=== PATIENT | male | born 1940 | race Caucasian/White ===

== ENCOUNTER 2018-07-03 19:39 | Inpatient (IN) | payer MEDICARE ==
[~2018-07-03] VITALS: Ht 177.8 cm; Wt 326.2 kg
--- NOTE | ~2018-07-03 | OP ---
PATIENT NAME: MARIE JIMENEZ JR MEDICAL RECORD: [id number] :40 LOCATION:.[facility] D.2307 ADMISSION DATE:07/04/18 SURGEON: LEFTY ALICIA MD DATE OF OPERATION: 07/06/2018 PREOPERATIVE DIAGNOSES: Pneumoperitoneum with perforated diverticulitis. POSTOPERATIVE DIAGNOSES: Pneumoperitoneum with perforated diverticulitis with widespread contamination throughout the abdomen. PROCEDURES: 1. Exploratory laparotomy. 2. Subtotal colectomy with ileorectal anastomosis. 3. Placement of wound VAC. 4. Insertion of right internal jugular double lumen central venous catheter. SURGEON: Lefty Alicia MD ACCOUNTANT TAX: None. BLOOD LOSS: 250 cc. ANESTHESIA: General. COMPLICATIONS: None. The risks, possible complications and alternatives to procedure were explained to the patient. He elects to proceed. I told the patient that I may be faced with a dilemma of whether to perform a Say procedure with a colostomy or to perform an anastomosis between the colon and rectum and do a diverting ileostomy versus an ileorectal anastomosis, which may leave him with chronic diarrhea. He elected for chronic diarrhea rather than have a stoma. The anesthesia staff requested that I gain additional IV access on this patient by placing a central line. OPERATIVE COURSE: The patient was conveyed to the operating room electively on 07/06/2018. General anesthesia was induced by the anesthesia staff. The patient was positioned in Trendelenburg position. Right internal jugular vein was percutaneously accessed in an antegrade fashion. Guidewire was passed easily. A small skin anna marie was accomplished. A vessel dilator was used to dilate a subcutaneous tract. A 16-cm double lumen central venous catheter was inserted to the hub. It was sutured in place times 3. All lumens flushed easily and aspirated dark, nonpulsatile blood. I told the anesthesia staff they could begin using the central venous line immediately. The abdomen was sterilely prepped and draped. A generous midline incision was accomplished. Retractors were placed. There were some adhesions and the sharp adhesiolysis took only about 5 minutes. There was contamination with succuss present within the abdomen. Cultures were obtained. OPERATIVE REPORT [id number] MARIE JIMENEZ JR I began my dissection, which was mainly blunt dissection and noted an area in the sigmoid colon that was very indurated with a lot of exudate and this appeared to be where the perforation was present. However, I could not definitely identify the perforation. I chose to excise this portion of the colon in the hopes that I might be able to perform an anastomosis between the sigmoid colon and the rectum. A window was created in the mesentery of the colon as it splays out from the rectum. I stapled across the large bowel here with a ELÍAS-75 stapler. I then chose the proximal extent of my resection to be the junction of the descending colon and sigmoid colon. I stapled across these large bowel here with a ELÍAS-75 stapler. The interpose mesentery was taken down utilizing the Super Jaw EnSeal device. Once that was done, I irrigated some more. There was no bleeding. I identified both ureters. They were retracted for protection. I elected to perform a subtotal colectomy as a colorectal anastomosis was going to be hazardous and prone to rupture. I incised along the left white line of Toldt. I took down the splenic flexure of the colon sharply. I then began my division of the descending colon mesentery with the Super Jaw EnSeal device. I then rounded the splenic flexure. I took down the greater omentum in its entirety with the EnSeal device. I then took down the mesentery of the transverse colon with the Super Jaw EnSeal device. I incised along the right white line of Toldt. I swept down the duodenum. I identified the inferior vena cava. I took down the mesentery of the right colon with the Super Jaw EnSeal device. I then divided the ileum at the ligament of Treitz with a ELÍAS-75 stapler. The subtotal colectomy specimen was then sent to pathology. I then mobilized the ileum. It was placed in apposition to the rectal stump front to back. It was kept in place with multiple interrupted 3-0 Vicryl sutures. A small enterotomy and small rectotomy were performed and I advanced anvils of the ELÍAS-75 stapler and then fired. I then began to "milk" some of the fluid within the dilated small bowel toward the anastomosis. There was no leakage from the anastomosis which appeared to be air and water tight. I irrigated all quadrants with normal saline. I ensured the small bowel was not twisted on its mesentery. The midline fascia was closed with a running looped #1 PDS from cephalad and caudad directions. I then placed a wound VAC black strip in the open subcutaneous wound. The cellophane-type dressings were applied over the black wound VAC sponge. The cellophane-type dressings were incised. A Lap-Disc device was applied and attached to suction which held a good "raison" indicating good suction with a seal that was not leaking. The patient was then extubated and conveyed to the post-anesthesia care unit where he was in stable condition. I contacted his by phone. TRANSINT:[id number] Voice Confirmation ID: [id number] DOCUMENT ID: [id number] OPERATIVE REPORT [id number] MARIE JIMENEZ JR, LEFTY DANGELO at 1240 CC: [id number] DICTATION DATE: 07/06/181819 SOLOIST DANCER: 07/07/18 [address] [facility] [address] [place] [address]
--- NOTE | ~2018-07-03 | PN ---
PATIENT:MARIE JIMENEZ JR MEDICAL RECORD: [id number] LOCATION:D.ICU D.230 ADMISSION DATE: 07/04/18 PROGRESS NOTE DATE OF SERVICE: 07/20/2018 SUBJECTIVE: This 77-year-old man was admitted through the Emergency Room for acute perforation of diverticulitis. The patient was taken to surgery and had partial colectomy as well as ileorectal colostomy. The patient did well, was brought to the ICU on a mask oxygen. The patient began to have increasing shortness of breath as well as tachypnea. The patient was intubated. He also had a large right pleural effusion, which was removed with thoracentesis. The patient has improved requiring less FiO2. He has been awake, but nonverbal, no response to verbal stimuli. There is no fever or chills. Had an uneventful night. PHYSICAL EXAMINATION: GENERAL: Reveals only a male who is in no acute distress. VITAL SIGNS: Temperature 100.9, heart rate of 81, respiratory rate of 18, blood pressure 102/64. SHEENT: Unremarkable. NECK: Supple. There is no adenopathy. Trachea is midline. There is no thyromegaly. CHEST: Showed mild basilar crackles. CARDIAC: Shows no jugular venous distention. There is no murmur or gallop. ABDOMEN: Benign, without tenderness. EXTREMITIES: Shows no clubbing, cyanosis, or edema. LABORATORY DATA: Lab exam showed white count is 19.3, hemoglobin 9.1, platelet count 558,000. Arterial blood gas: PH 7.42, pCO2 of 34, and pO2 of 105 on 40% FiO2. Chest x-ray showed increasing bilateral pleural effusions. ASSESSMENT: 1. Acute hypoxemic respiratory failure. 2. Bilateral pleural effusions. 3. Pneumonia, on antibiotics. 4. Ruptured diverticulitis. 5. Peritonitis. 6. Bilateral pleural effusion, rule out cardiac dysfunction. PLAN: 1. Lasix. 2. Wean, if possible extubate as tolerated. 3. DVT prophylaxis. TRANSINT:[id number] Voice Confirmation ID: [id number] DOCUMENT ID: [id number] PROGRESS NOTE [id number] BARBARADALTON KRAMER JR at 0942 CC: [id number] DICTATION DATE: 07/20/18913 DESIGNER ARCHITECT: 07/20/[address] [facility] [address] [place] [id number]
--- NOTE | ~2018-07-03 | PN ---
PATIENT:MARIE JIMENEZ JR MEDICAL RECORD: [id number] LOCATION:D.[facility] D.230 ADMISSION DATE: 07/04/18 PROGRESS NOTE DATE OF SERVICE: 07/17/2018 SUBJECTIVE: This is a 77-year-old man who was admitted through the Emergency Room with perforated diverticulitis. The patient had ileocolostomy and a segmental resection of the colon. The patient also had some washing with saline. The patient was transferred to the ICU off the ventilator. The patient did well, required high-flow oxygen, but had increased respiratory rate and appeared to be short of breath, although blood gases appeared to be in normal range. The patient was intubated. He had a moderate to large right pleural effusion, which was drained. The patient is sedated. There are no fever or chills. He had an uneventful night. He has some mild secretions suctioned through the ET tube. PHYSICAL EXAMINATION: GENERAL: Reveals an elderly man who is in no acute distress, sedated. VITAL SIGNS: Temperature 99.7, heart rate 79, respiratory rate of 18, blood pressure 123/68. SHEENT: Unremarkable. NECK: Supple. Trachea is midline. No adenopathy. No thyromegaly. CHEST: Showed coarse crackles bilaterally. There is no accessory muscle use. HEART: Shows no jugular venous distention, murmur or gallops. ABDOMEN: Benign, without any tenderness. There is no distention. EXTREMITIES: Shows no clubbing, cyanosis or edema. LABORATORY DATA: Showed white count of 20.1, hemoglobin is 8, platelet count is 181. Arterial blood gas: pH 7.38, pCO2 of 40, pO2 of 165 on 80% FiO2. Chemistry is remarkable for potassium of 3.9, creatinine is 1.4, lactic acid 1.8, calcium is 6.9, albumin is 1. Showed increasing weight of about 5 pounds since admission. Microbiology showed pseudomonas aeruginosa, sensitive to meropenum as well as levofloxacin. Pleural fluid shows no growth or any organisms on Gram stain. The chest x-ray showed worsening of bilateral airspace disease and bilateral pleural effusions. ASSESSMENT AND PLAN: 1. Acute respiratory failure with hypoxemia. The patient is currently on ventilator support. He had thoracentesis yesterday. 2. Aspiration pneumonia. 3. Status post repair of perforated diverticulitis. The patient has improving leukocytosis. Wound is growing Pseudomonas. 4. Bilateral pleural effusion, probably from hypovolemia. 5. Hypoalbuminemia with protein-calorie malnutrition. We will start the patient on tube feeding at a very low rate and increase as tolerated. DISCUSSION: NEUROPSYCHIATRIC: There is no focal sign. The patient is heavily sedated. CARDIOVASCULAR: The patient probably has atrial fib, but there is no evidence on rhythm. PULMONARY AND RESPIRATORY: The patient is on bronchodilators. He has pneumonia, on mechanical ventilation. We will decrease sedation. GASTROINTESTINAL AND DIETARY: The patient is n.p.o. We will give propofol infusion. He will need a slow GI tube feeding. PROGRESS NOTE [id number] MARIE JIMENEZ JR RENAL AND METABOLIC: The patient has mild renal insufficiency with GFR about 52 liters. Dose medications according to renal function. Elevated glucose level, probably secondary to stress. Ammonia level is decreased. PLAN: 1. Mechanical ventilation. 2. Reduce FiO2. 3. DVT prophylaxis. 4. Albumin q.12 hours to increase albumin level. 5. IV calcium gluconate for hypocalcemia. 6. Evaluate antibiotics. TRANSINT:[id number] Voice Confirmation ID: [id number] DOCUMENT ID: [id number] DALTON EUCEDA at 0940 CC: [id number] DICTATION DATE: 07/17/18 1132 ROTOR CASTING MACHINE SETUP OPERATOR: 07/17/18 1235 ADM IN [place] [id number] [place] [address]
--- NOTE | ~2018-07-03 | PN ---
PATIENT:MARIE JIMENEZ JR MEDICAL RECORD: [id number] LOCATION:.[facility] D.230 ADMISSION DATE: 07/04/18 PROGRESS NOTE DATE OF SERVICE: 07/18/2018 SUBJECTIVE: This is a 77-year-old man who was admitted through the Emergency Room with perforated diverticulitis. The patient was taken to surgery and had a hemicolectomy as well as ileal colostomy. The patient was brought back to the ICU on high-flow oxygen, required physical intubation because of tachypnea and right pleural effusion. The patient had a thoracentesis, but has had continued bibasilar infiltrates and enlarging right pleural effusion. The patient was on mechanical ventilation. He has no fever or chills. PHYSICAL EXAMINATION: GENERAL: Reveals an elderly man who is in no acute distress, sedated on the ventilator. VITAL SIGNS: Temperature 99.0, heart rate of 66, respiratory rate of 18, blood pressure 115/68. SHEENT: Unremarkable. Normocephalic. Pupils are equal and reactive. There is orotracheal and orogastric tubes in the mouth. NECK: Supple. There is no adenopathy. Trachea is midline. There is no thyromegaly. CHEST: Showed coarse crackles bilaterally. There is no chest wall tenderness. HEART: Shows no jugular venous distention, murmur or gallops. ABDOMEN: Benign. EXTREMITIES: Shows no clubbing, cyanosis or edema. LABORATORY DATA: Showed a white count of 21,000, hemoglobin 9.8, and platelet count is 466. Blood gas: pH 7.41, pCO2 of 33, and pO2 of 81 on 40%. Chemistry is unremarkable. Potassium 3.7, creatinine is 1.3. ASSESSMENT: 1. Acute respiratory failure with hypoxemia. The patient is on mechanical ventilation. 2. Pneumonia. Pleural effusion, probably from peritoneal lavage. There is no bacteria. 3. Allergic rhinitis with perforation as well as peritonitis. This has been treated. Continue on antibiotics. DISCUSSION: NEUROPSYCHIATRY: There are no focal signs. The patient is sedated on the ventilator. CARDIOVASCULAR: No issues at this time. We will watch for atrial fib in patient. PULMONARY AND RESPIRATORY: The patient has pneumonia, pleural effusion, and possibly airway disease. RENAL AND METABOLIC: The patient has some mild renal insufficiency. No azotemia. Glucose level is high, not maximally controlled with sliding scale. PLAN: 1. Continue mechanical ventilation. 2. Lasix times 1. 3. Mucolytics. 4. Continue DVT prophylaxis. PROGRESS NOTE [id number] MARIE JIMENEZ JR TRANSINT:[id number] Voice Confirmation ID: [id number] DOCUMENT ID: [id number] DALTON EUCEDA at 1238 CC: [id number] DICTATION DATE: 07/18/18939 MOTOR GENERATOR SET OPERATOR: 07/18/18 1104 ADM IN [place] [place] [address]
--- NOTE | ~2018-07-03 | PN ---
PATIENT:MARIE JIMENEZ JR MEDICAL RECORD: [id number] LOCATION:[facility] D.230 ADMISSION DATE: 07/04/18 PROGRESS NOTE DATE OF SERVICE: 07/16/2018 SUBJECTIVE: This is a 77-year-old male who was admitted for perforated diverticulitis. The patient was taken to surgery and had a reanastomosis as well as saline wash for peritonitis as well as a subtotal colectomy with ileorectostomy. The patient did well, was extubated, has been noted to have tachypnea and the right pleural effusion has been increasing. Arterial blood gas was very good. No fever or chills. PHYSICAL EXAMINATION: GENERAL: Reveals an elderly male who is in no acute distress, sedated. VITAL SIGNS: Temperature 100.4, heart rate of 97, respiratory rate of 16, blood pressure 150/72, saturation 96%. SHEENT: The patient is normocephalic. Pupils are equal and reactive. The patient has NG tube with a small amount of coffee-ground. NECK: Supple. There is no adenopathy. Trachea is midline. LUNGS: Decreased breath sounds in the right. Mild crackles on the left. CARDIAC: Showed no jugular venous distention, murmur or gallops. ABDOMEN: Mildly distended with no tenderness. EXTREMITIES: Show no clubbing, cyanosis or edema. LABORATORY DATA: Showed white count 29,000, hemoglobin 9, platelet count is 611,000. Arterial blood gas pH 7.46, pCO2 of 30 and pO2 of 79. It is on 40% Aeromask. Chemistry is remarkable for creatinine of 1.2, BUN is 29, chloride is 115, sodium 145. Chest x-ray shows stable respiratory disease throughout the right lung, left lung with bilateral pleural effusions, larger on the right than the left. ASSESSMENT AND PLAN: 1. Acute perforated diverticulitis, status post ileostomy and subtotal colectomy. 2. Acute respiratory failure with hypoxemia. 3. Moderate right pleural effusion. The patient will need thoracentesis because of tachypnea. 4. Hypernatremia, improved with free water. 5. Thrombocytosis, possibly secondary to infectious type process. DISCUSSION: NEUROPSYCHIATRY: The patient is sedated. There are no focal signs as he moves all extremities. CARDIOVASCULAR: The patient is stable and no current issues. PULMONARY AND RESPIRATORY: The patient has bilateral pleural effusions, more so on the right, tachypneic because of the effusion. The patient will need thoracentesis on the right. GASTROINTESTINAL AND DIETARY: The patient is n.p.o., but no major GI issues at this time following surgery. RENAL AND METABOLIC: The patient has hypernatremia being treated with free water and improving. PLAN: 1. Right thoracentesis today. Check for chemistry, culture and cytology. PROGRESS NOTE [id number] MARIE JIMENEZ JR 2. Continue mechanical ventilation. 3. Continue DVT prophylaxis. TRANSINT:[id number] Voice Confirmation ID: [id number] DOCUMENT ID: [id number] DALTON EUCEDA at 0831 CC: [id number] DICTATION DATE: 07/16/18 1135 RAIL SWITCH OPERATOR: 07/16/[address] [facility] [address] [place] [address]
--- NOTE | ~2018-07-03 | EC ---
PATIENT:BARBARA,MARIE Ledesma JR DATE OF SERVICE: 07/04/18 SEX: M MEDICAL RECORD: [id number] DATE OF : 40 LOCATION:[facility] AGE OF PATIENT: 77 ADMISSION DATE: 07/04/18 REFERRING PHYSICIAN: INTERPRETING PHYSICIAN: WILLIAN MORIN MD ECHOCARDIOGRAM REPORT ECHO CHARGES 5 ECHO LIMITED Date: 07/20 CLINICAL DIAGNOSIS: CHF ECHOCARDIOGRAPHIC MEASUREMENTS (adult normal given) AC root (d.<3.7cm) 2.8 cm LV Septum d (<1.2 cm> cm Valve Excursion 0.9 cm LV Septum (systole) cm Left Atria (s.<4.0cm> cm LVPW d(<1.2cm) cm RV (d.<2.3cm) cm LVPW (sytole) cm LV diastole(<5.6CM) cm MV E-F(>70mm/sec) cm LV systole cm LVOT Diameter cm MV exc.(>10mm) cm Est.ejection fraction (50-75%) % DOPPLER: LVIT cm/sec A cm/sec E cm/sec LA cm/sec RVSP mmHg LVOT cm/sec AOP1/2T m/s Asc. Ao cm/sec RVOT cm/sec RA cm/sec PA cm/sec AV Gradient Peak mmHg AV Mean mmHg AV Area cm MV Gradient Peak mmHg MV Mean mmHg MV Area cm COMMENTS: Poultry Husbandry Worker: Harshad JENKINS Barrel Painter: Lázaro Morin TAPE# PACS Pericardial Effusion N DATE OF SERVICE: PROCEDURE: Limited transthoracic echocardiogram. FINDINGS: Overall, the left ventricle appears to be hyperdynamic. The right ventricle appears to be hyperdynamic. There is no gross valvular abnormalities, but it was very limited echocardiography because of the patient's logistics, but again there are no obvious abnormalities in structure or function and in fact, the patient has hyperdynamic left ventricular function. ECHOCARDIOGRAM REPORT [id number] MARIE JIMENEZ JR TRANSINT:[id number] Voice Confirmation ID: [id number] DOCUMENT ID: [id number] WILLIAN MORIN MD at 0749 CC: [id number] DICTATION DATE: 07/21/182241 SAMPLE TESTER GRINDER: 07/22/18 0539 ADM IN [facility] [address] [place] [address]
--- NOTE | ~2018-07-03 | PN ---
PATIENT:MARIE JIMENEZ JR MEDICAL RECORD: [id number] LOCATION:D.[facility] D.230 ADMISSION DATE: 07/04/18 PROGRESS NOTE DATE OF SERVICE: 07/19/2018 SUBJECTIVE: A 77-year-old man was admitted through the Emergency Room with acute abdominal pain, noted to have perforated diverticulitis. The patient was taken to surgery, washed and had colostomy as well as hemicolectomy. The patient did well initially in the ICU without intubation. He became very tachypneic. He had large right pleural effusion. A thoracentesis was done. The patient was intubated. The patient has been doing well with improving gas exchange. The patient is awake and alert, on Precedex today. Had uneventful night. He had no fevers or chills. PHYSICAL EXAMINATION: GENERAL: Reveals an elderly man, who is in no acute distress. VITAL SIGNS: Temperature 99.1, heart rate of 94, respiratory rate of 18, blood pressure 122/72. SHEENT: Unremarkable. The patient is normocephalic. Pupils are equal, reactive. NECK: Supple. There is no adenopathy. There is no thyromegaly. Trachea is midline. There is no tenderness. CHEST: He has good airflow bilaterally. ABDOMEN: Showed decreased bowel sounds with no tenderness, no masses. EXTREMITIES: Shows no clubbing, cyanosis, or edema. LABORATORY DATA: Lab exam showed white count of 19.8, hemoglobin 9.5, and platelet count is 105. Arterial blood gas: PH 7.42, pCO2 of 34, pO2 is 101, FiO2 is 40%. Chemistry showed creatinine of 1.6, BUN of 38. Chest x-ray shows significant improvement, stable right basilar airspace disease, and decreased pleural effusion. ASSESSMENT: 1. Acute respiratory failure with hypoxemia. The patient is on mechanical ventilation. 2. Pleural effusion, status post thoracentesis. No pneumothorax. 3. Pneumonia is improving. White count is improving. Gas exchange is improving. 4. Perforated diverticulitis repair, colostomy with hemicolectomy. The patient is on antibiotics. 5. Mild anemia. 6. Severe hypoalbuminemia with albumin of 1. DISCUSSION: NEUROPSYCHIATRY: Has no focal signs. The patient's mental status is improving. Sedation with Precedex. CARDIOVASCULAR: Had no issues. PULMONARY/RESPIRATORY: The patient is on bronchodilators. PLAN: 1. Wean off ventilator. 2. Continue bronchodilators. 3. Continue antibiotics. PROGRESS NOTE [id number] MARIE JIMENEZ JR 4. Calcium supplement. 5. Deep venous thrombosis prophylaxis. TRANSINT:[id number] Voice Confirmation ID: [id number] DOCUMENT ID: [id number] DALTON EUCEDA at 1418 CC: [id number] DICTATION DATE: 07/19/1839 FINANCIAL PROFESSIONAL: 07/19/18 1159 ADM IN [place] [address] [place] [address]
--- NOTE | ~2018-07-03 | PN ---
PATIENT:MARIE JIMENEZ JR MEDICAL RECORD: [id number] LOCATION:D.ICU D.230 ADMISSION DATE: 07/04/18 PROGRESS NOTE DATE OF SERVICE: 07/21/2018 SUBJECTIVE: This is a 77-year-old male who was admitted through the Emergency Room for abdominal pain, was noted to have ruptured diverticulitis. The patient was taken to surgery, had colostomy and partial colectomy. He was admitted to ICU and placed on oxygen by mask. The patient was noted to have bilateral pleural effusion. The patient was intubated and thoracentesis was done. The patient was noted to have bilateral pleural effusion and basilar infiltrates or pneumonia. The patient has required sedation. He has been doing well and now on 40% FiO2. He has tolerated weaning protocol. The patient is now on weaning protocol with CPAP support. She had an uneventful night. PHYSICAL EXAMINATION: GENERAL: Reveals an elderly man who is in no acute distress with eyes open and awake. VITAL SIGNS: Temperature 99.1, heart rate of 67, respiratory rate of 18, blood pressure 97/52. SHEENT: Unremarkable. NECK: Supple. No adenopathy. Trachea is midline. There is no thyromegaly. There is no tenderness. CHEST: Shows some mild crackles bilaterally. CARDIAC: Shows no jugular venous distention, murmur, or gallops. ABDOMEN: Benign. EXTREMITIES: No clubbing, cyanosis, or edema. NEUROLOGIC: Shows no focal deficits. LABORATORY DATA: Lab exam showed chest x-ray with now right pleural effusion. ASSESSMENT: 1. Acute respiratory failure and hypoxemia. The patient is on mechanical ventilation and tolerating weaning protocol. 2. Ruptured diverticulitis. The patient had colostomy and ileostomy. 3. Chronic obstructive pulmonary disease. 4. Pneumonia. DISCUSSION: NEUROPSYCHIATRIC: The patient's mental status is improving on Precedex. There are no focal signs. CARDIOVASCULAR: The patient has no current cardiac disease or arrhythmias. Hypertension, on Cardene. This will be titrated down. RESPIRATORY/PULMONARY: The patient has pneumonia and pleural effusion. The patient is on bronchodilators and mechanical ventilation. GASTROINTESTINAL/DIETARY: The patient is on TPN, tolerating TPN. RENAL/METABOLIC: The patient has moderate acute kidney injury. We will monitor. PLAN: 1. Continue Lasix 40 mg daily. 2. Weaning protocol. 3. DVT prophylaxis. 4. Continue antibiotics. PROGRESS NOTE [id number] MARIE JIMENEZ JR TRANSINT:[id number] Voice Confirmation ID: [id number] DOCUMENT ID: [id number] DALTON EUCEDA at 0809 CC: [id number] DICTATION DATE: 07/21/18 1108 BID ANALYST: 07/21/181927 ADM IN [facility] [address] [place] [id number]
--- NOTE | ~2018-07-03 | PN ---
PATIENT:MARIE JIMENEZ JR MEDICAL RECORD: [id number] LOCATION:.[facility] D.230 ADMISSION DATE: 07/04/18 PROGRESS NOTE DATE OF SERVICE: 07/15/2018 SUBJECTIVE: This is a 77-year-old male who was admitted through the Emergency Room for acute diverticulitis. The patient had perforation with peritonitis. This was repaired as well as washed with saline. The patient was noted to have acute hypoxemic respiratory failure. Also was noted to have a lower lobe pneumonia and right pleural effusions. There is no fever or chills. There is some nausea and vomiting. The patient is on EzPAP. PHYSICAL EXAMINATION: GENERAL: Reveals an elderly man who is in no acute distress. VITAL SIGNS: Temperature 99.9, heart rate of 93, respiratory rate of 18, blood pressure 127/68, saturation 97% on high-flow oxygen. SHEENT: Unremarkable. NECK: Supple, no adenopathy. Trachea is midline. CHEST: Shows some mild crackles and coughing. HEART: Shows no jugular venous distention, murmur or gallop. ABDOMEN: Benign. The patient had a colostomy in the right and the left upper quadrant. EXTREMITIES: There is no clubbing, cyanosis or edema. LABORATORY DATA: [place] [address], hemoglobin 9.5, and platelet count of 548,000. Arterial blood gas: pH 7.45, pCO2 of 30, pO2 of 79 on 40% Aeromask. Chemistry is remarkable for sodium of 131, potassium 3.8, chloride is 118, bicarbonate 24. Chest x-ray showed progression of moderate to large right pleural effusion. ASSESSMENT AND PLAN: 1. Acute perforated diverticulitis, status post colectomy and anastomosis. 2. Pneumonia. The patient is currently on antibiotics. Some enlarging right pleural effusion presumed parapneumonic. Right pleural effusion, moderate. 3. Hyponatremia. The patient is on half normal saline. We will change to D5W. 4. Leukocytosis appears to be improving on antibiotics. We will monitor. 5. Thrombocytosis, probably from infection. We will monitor. 6. Anemia, mild. No need for antibiotics. No need for blood transfusions. 7. Acute exacerbation of chronic obstructive pulmonary disease. DISCUSSION: NEUROPSYCHIATRIC: There are no focal signs. The patient has decreased mental status, probably metabolic. Ammonia level is normal. CARDIOVASCULAR: No issues. PULMONARY AND RESPIRATORY: The patient has pneumonia and acute exacerbation of COPD. Pneumonia and parapneumonic effusion on antibiotics. RENAL AND METABOLIC: The patient has hyponatremia, increase free water. GASTROINTESTINAL AND DIETARY: The patient is n.p.o. secondary to GI procedure. PLAN: 1. Add normal saline to D5W. 2. Monitor chest x-ray for increasing pleural effusions. 3. Continue bronchodilators. 4. Continue high-flow oxygen supplement. PROGRESS NOTE [id number] MARIE JIMENZE V JR TRANSINT:[id number] Voice Confirmation ID: [id number] DOCUMENT ID: [id number] DALTON EUCEDA at 0831 CC: [id number] DICTATION DATE: 07/15/18 1024 PATTERN FILER: 07/15/18 1214 ADM IN [place] [id number] [place] [address]
[2018-07-03] MEDS ORDERED: IBUPROFEN800 MG (19:46)
[2018-07-03 21:21] LABS: ALBUMIN 3.7 g/dL (3.4-5.0); ANION GAP 14.7 mmol/L (8-16); BILIRUBIN - TOTAL 1.24 mg/dL (0.2-1.3); CALCIUM 8.7 mg/dL (8.5-10.1); CARBON DIOXIDE 26.8 mmol/L (21.0-32.0); CREATININE - SERUM 1.2 mg/dL (0.6-1.3); POTASSIUM - SERUM 3.5 mmol/L (3.5-5.1); PROTEIN - SERUM 6.9 g/dL (6.4-8.2)
[2018-07-03 21:30] VITALS: BP 116/80
[2018-07-03 21:33] LABS: HEMATOCRIT 49.4 % (42.0-54.0); HEMOGLOBIN 17.1 g/dL (13.5-17.5); MCH 30.7 pg (26.0-34.0); MCHC 34.6 g/dL (31.0-37.0); MCV 88.7 fL (80.0-100.0); MEAN PLATELET VOLUME 9.9 fL (7.4-10.4); PLATELET COUNT 195 10x3/uL (130-400); RBC 5.57 10x6/uL (4.20-6.10); RDW 13.3 % (11.5-14.5); WBC 11.3 10x3/uL (4.8-10.8)
[2018-07-03 22:21] LABS: EOSINOPHILS 3 % (0-7); LYMPHOCYTES 60 % (15-50); NEUTROPHILS 32 % (40-80); PLATELET ESTIMATE NORMAL
[2018-07-03 23:47] LABS: APPEARANCE CLEAR (CLEAR); BILIRUBIN NEGATIVE (NEGATIVE); COLOR YELLOW (YELLOW); EPITHELIAL CELLS 0-5 /hpf (0-5); GLUCOSE NEGATIVE (NEGATIVE); KETONE SMALL mg/dL (NEGATIVE); NITRITE NEGATIVE (NEGATIVE); PROTEIN NEGATIVE (NEGATIVE); RED CELLS - URINE 0-5 /hpf (0-5); SPECIFIC GRAVITY 1.015 (1.005-1.020); UROBILINOGEN NORMAL (NORMAL); WHITE CELLS - URINE 0-5 /hpf (0-5)
[2018-07-03 23:48] LABS: BACTERIA FEW /hpf (NONE SEEN)
[2018-07-03 23:54] VITALS: BP 94/64
[2018-07-04] VITALS (24 sets, daily range): BP systolic 87–153; BP diastolic 55–96; BMI 25.3
[2018-07-04] MEDS ORDERED: FISH OIL 1,0001 CA1 PO (12:33)
[2018-07-04] MEDS ORDERED: FLAXSEED OIL1000 MG PO (12:34)
[2018-07-04] MEDS ORDERED: MULTIPLE VITAMI1 TA1 PO (12:34)
[2018-07-04] MEDS ORDERED: GLUCOSAMINE & C1 CAP PO (12:35)
[2018-07-05] VITALS (22 sets, daily range): BP systolic 106–175; BP diastolic 68–105; BMI 25.2
[2018-07-05 04:58] LABS: BASOPHILS 0.1 % (0-2); EOSINOPHILS 0.1 % (0-7); IMMATURE GRANULOCYTES 0.4 % (0-5); LYMPHOCYTES 35.4 % (15-50); MCH 30.5 pg (26.0-34.0); MCHC 34.6 g/dL (31.0-37.0); MCV 88.2 fL (80.0-100.0); MEAN PLATELET VOLUME 9.3 fL (7.4-10.4); MONOCYTES 2.1 % (2-11); NEUTROPHILS 61.9 % (40-80); RDW 13.8 % (11.5-14.5)
[2018-07-05 05:02] LABS: HEMATOCRIT 38.2 % (42.0-54.0); HEMOGLOBIN 13.2 g/dL (13.5-17.5); PLATELET COUNT 155 10x3/uL (130-400); RBC 4.33 10x6/uL (4.20-6.10)
[2018-07-05 05:08] LABS: INR 1.57 (0.85-1.17); PROTIME 18.3 SECONDS (11.6-15.0)
[2018-07-05 05:09] LABS: APTT 31.6 SECONDS (22.8-39.4)
[2018-07-05 05:22] LABS: ALKALINE PHOSPHATASE 40 U/L (46-116); BILIRUBIN - TOTAL 1.18 mg/dL (0.2-1.3); CALC OSMOLALITY 287 mosm/kg (275-300); CARBON DIOXIDE 26.1 mmol/L (21.0-32.0); CHLORIDE - SERUM 108 mmol/L (98-107); GLUCOSE 136 mg/dL (74-106); POTASSIUM - SERUM 3.3 mmol/L (3.5-5.1); PROTEIN - SERUM 5.4 g/dL (6.4-8.2); SODIUM 142 mmol/L (136-145); UREA NITROGEN 21 mg/dL (7-18)
[2018-07-05 05:24] LABS: ALBUMIN 2.5 g/dL (3.4-5.0); ALT (SGPT) 19 U/L (10-68); CREATININE - SERUM 0.8 mg/dL (0.6-1.3); eGFR NON AFRICAN AMERICAN > 90 mL/min (90-120)
[2018-07-05 05:26] LABS: CALCIUM 6.8 mg/dL (8.5-10.1)
[2018-07-06] VITALS (25 sets, daily range): BP systolic 92–169; BP diastolic 66–99
[2018-07-07] VITALS (24 sets, daily range): BP systolic 91–174; BP diastolic 69–99
[2018-07-08] VITALS (24 sets, daily range): BP systolic 132–180; BP diastolic 75–101
[2018-07-08 08:20] LABS: ALBUMIN 1.6 g/dL (3.4-5.0); ANION GAP 12.2 mmol/L (8-16); BILIRUBIN - TOTAL 0.58 mg/dL (0.2-1.3); CALCIUM 7.3 mg/dL (8.5-10.1); CARBON DIOXIDE 23.4 mmol/L (21.0-32.0); CREATININE - SERUM 1.1 mg/dL (0.6-1.3); MAGNESIUM - SERUM 2.5 mg/dL (1.8-2.4); POTASSIUM - SERUM 3.6 mmol/L (3.5-5.1); PROTEIN - SERUM 5.1 g/dL (6.4-8.2)
[2018-07-08 08:21] LABS: BASOPHILS 0.1 % (0-2); EOSINOPHILS 0 % (0-7); HEMATOCRIT 35.5 % (42.0-54.0); HEMOGLOBIN 12.3 g/dL (13.5-17.5); IMMATURE GRANULOCYTES 0.8 % (0-5); LYMPHOCYTES 51.3 % (15-50); MCH 30.1 pg (26.0-34.0); MCHC 34.6 g/dL (31.0-37.0); MCV 86.8 fL (80.0-100.0); MEAN PLATELET VOLUME 9.3 fL (7.4-10.4); MONOCYTES 5.6 % (2-11); NEUTROPHILS 42.2 % (40-80); PLATELET COUNT 183 10x3/uL (130-400); RBC 4.09 10x6/uL (4.20-6.10); WBC 24.1 10x3/uL (4.8-10.8)
[2018-07-09] VITALS (23 sets, daily range): BP systolic 127–189; BP diastolic 79–114
[2018-07-09 05:19] LABS: BASOPHILS 0 % (0-2); EOSINOPHILS 0.5 % (0-7); HEMOGLOBIN 10.6 g/dL (13.5-17.5); IMMATURE GRANULOCYTES 1.1 % (0-5); LYMPHOCYTES 48.3 % (15-50); MCH 29.5 pg (26.0-34.0); MCHC 34.2 g/dL (31.0-37.0); MCV 86.4 fL (80.0-100.0); MEAN PLATELET VOLUME 9.2 fL (7.4-10.4); MONOCYTES 4.5 % (2-11); NEUTROPHILS 45.6 % (40-80); PLATELET COUNT 175 10x3/uL (130-400); RBC 3.59 10x6/uL (4.20-6.10); RDW 14.9 % (11.5-14.5)
[2018-07-09 05:41] LABS: CALC OSMOLALITY 313 mosm/kg (275-300); CALCIUM 7.2 mg/dL (8.5-10.1); CARBON DIOXIDE 25.1 mmol/L (21.0-32.0); CREATININE - SERUM 0.9 mg/dL (0.6-1.3); GLUCOSE 171 mg/dL (74-106); MAGNESIUM - SERUM 2.5 mg/dL (1.8-2.4); POTASSIUM - SERUM 3.3 mmol/L (3.5-5.1); SODIUM 151 mmol/L (136-145); UREA NITROGEN 40 mg/dL (7-18); eGFR NON AFRICAN AMERICAN 87 mL/min (90-120)
[2018-07-09 06:01] LABS: CHLORIDE - SERUM 119 mmol/L (98-107); PHOSPHOROUS 1.1 mg/dL (2.5-4.9)
[2018-07-10] VITALS (33 sets, daily range): BP systolic 106–127; BP diastolic 66–95
[2018-07-10 04:02] LABS: BASOPHILS 0.1 % (0-2); EOSINOPHILS 0.2 % (0-7); HEMATOCRIT 32.5 % (42.0-54.0); HEMOGLOBIN 11.4 g/dL (13.5-17.5); IMMATURE GRANULOCYTES 2.1 % (0-5); LYMPHOCYTES 47.3 % (15-50); MCH 29.7 pg (26.0-34.0); MCHC 35.1 g/dL (31.0-37.0); MCV 84.6 fL (80.0-100.0); MEAN PLATELET VOLUME 9.5 fL (7.4-10.4); MONOCYTES 3.7 % (2-11); NEUTROPHILS 46.6 % (40-80); PLATELET COUNT 215 10x3/uL (130-400); RBC 3.84 10x6/uL (4.20-6.10); RDW 14.9 % (11.5-14.5); WBC 26.7 10x3/uL (4.8-10.8)
[2018-07-10 04:04] LABS: CALC OSMOLALITY 312 mosm/kg (275-300); CALCIUM 7.2 mg/dL (8.5-10.1); CARBON DIOXIDE 25.3 mmol/L (21.0-32.0); CREATININE - SERUM 0.8 mg/dL (0.6-1.3); GLUCOSE 207 mg/dL (74-106); SODIUM 150 mmol/L (136-145); UREA NITROGEN 38 mg/dL (7-18); eGFR NON AFRICAN AMERICAN > 90 mL/min (90-120)
[2018-07-10 04:05] LABS: CHLORIDE - SERUM 117 mmol/L (98-107)
[2018-07-10 04:06] LABS: POTASSIUM - SERUM 2.8 mmol/L (3.5-5.1)
[2018-07-10 10:02] LABS: MAGNESIUM - SERUM 2.4 mg/dL (1.8-2.4)
[2018-07-10 10:07] LABS: PHOSPHOROUS 1.4 mg/dL (2.5-4.9)
[2018-07-10 11:15] LABS: INR 1.39 (0.85-1.17); PROTIME 16.5 SECONDS (11.6-15.0)
[2018-07-10 17:17] LABS: PROTEIN - BODY FLUID 1.9 G/DL
[2018-07-10 18:18] LABS: EOS BF 1 %; MACROPHAGES BF 3 %; MESOTHELIALS BF 93 %; NEUT - BF 3 %
[2018-07-11] VITALS (25 sets, daily range): BP systolic 105–125; BP diastolic 62–73
[2018-07-11 04:26] LABS: BASOPHILS 0.1 % (0-2); EOSINOPHILS 0.9 % (0-7); HEMATOCRIT 31.5 % (42.0-54.0); IMMATURE GRANULOCYTES 2.1 % (0-5); LYMPHOCYTES 44.1 % (15-50); MCH 29.5 pg (26.0-34.0); MCHC 34.9 g/dL (31.0-37.0); MCV 84.5 fL (80.0-100.0); MEAN PLATELET VOLUME 9.9 fL (7.4-10.4); MONOCYTES 3.5 % (2-11); NEUTROPHILS 49.3 % (40-80); PLATELET COUNT 278 10x3/uL (130-400); RBC 3.73 10x6/uL (4.20-6.10); RDW 14.9 % (11.5-14.5)
[2018-07-11 05:44] LABS: ALBUMIN 1.4 g/dL (3.4-5.0); ALKALINE PHOSPHATASE 48 U/L (46-116); ALT (SGPT) 11 U/L (10-68); AMYLASE - SERUM 50 U/L (25-115); BILIRUBIN - TOTAL 0.81 mg/dL (0.2-1.3); CALCIUM 7.1 mg/dL (8.5-10.1); CARBON DIOXIDE 22.4 mmol/L (21.0-32.0); CREATININE - SERUM 0.9 mg/dL (0.6-1.3); LDH 448 U/L (85-227); MAGNESIUM - SERUM 2.3 mg/dL (1.8-2.4); PROTEIN - SERUM 4.2 g/dL (6.4-8.2); SODIUM 149 mmol/L (136-145); UREA NITROGEN 43 mg/dL (7-18); eGFR NON AFRICAN AMERICAN 87 mL/min (90-120)
[2018-07-11 06:13] LABS: CALC OSMOLALITY 309 mosm/kg (275-300); GLUCOSE 145 mg/dL (74-106); PHOSPHOROUS 2.7 mg/dL (2.5-4.9); POTASSIUM - SERUM 4.1 mmol/L (3.5-5.1)
[2018-07-11 06:16] LABS: CHLORIDE - SERUM 118 mmol/L (98-107)
[2018-07-12] VITALS (19 sets, daily range): BP systolic 113–131; BP diastolic 65–78
[2018-07-12 04:01] LABS: BASOPHILS 0.1 % (0-2); EOSINOPHILS 1.3 % (0-7); HEMATOCRIT 29.7 % (42.0-54.0); HEMOGLOBIN 10.1 g/dL (13.5-17.5); IMMATURE GRANULOCYTES 2.5 % (0-5); LYMPHOCYTES 46.2 % (15-50); MCH 29.1 pg (26.0-34.0); MCV 85.6 fL (80.0-100.0); MEAN PLATELET VOLUME 9.7 fL (7.4-10.4); MONOCYTES 2.8 % (2-11); NEUTROPHILS 47.1 % (40-80); PLATELET COUNT 306 10x3/uL (130-400); RBC 3.47 10x6/uL (4.20-6.10); RDW 15.2 % (11.5-14.5); WBC 32.6 10x3/uL (4.8-10.8)
[2018-07-12 04:19] LABS: ANION GAP 7.5 mmol/L (8-16); CALCIUM 7.4 mg/dL (8.5-10.1); CREATININE - SERUM 1.1 mg/dL (0.6-1.3); POTASSIUM - SERUM 3.5 mmol/L (3.5-5.1)
[2018-07-12 07:34] LABS: MAGNESIUM - SERUM 2.1 mg/dL (1.8-2.4); PHOSPHOROUS 2.6 mg/dL (2.5-4.9)
[2018-07-12 13:19] LABS: FUNGUS STAIN Final report (())
[2018-07-12 15:26] LABS: ACID FAST SMEAR Negative (()); AFB SPECIMEN PROCESSING Concentration (())
[2018-07-13] VITALS (24 sets, daily range): BP systolic 118–131; BP diastolic 67–77
[2018-07-13 06:38] LABS: BASOPHILS 0.1 % (0-2); EOSINOPHILS 0.8 % (0-7); HEMATOCRIT 29.8 % (42.0-54.0); HEMOGLOBIN 10.1 g/dL (13.5-17.5); IMMATURE GRANULOCYTES 1.3 % (0-5); LYMPHOCYTES 41.4 % (15-50); MCH 29.9 pg (26.0-34.0); MCHC 33.9 g/dL (31.0-37.0); MCV 88.2 fL (80.0-100.0); MEAN PLATELET VOLUME 10.2 fL (7.4-10.4); MONOCYTES 3.9 % (2-11); NEUTROPHILS 52.5 % (40-80); PLATELET COUNT 388 10x3/uL (130-400); RBC 3.38 10x6/uL (4.20-6.10); RDW 15.9 % (11.5-14.5); WBC 34.6 10x3/uL (4.8-10.8)
[2018-07-13 07:06] LABS: ALBUMIN 1.4 g/dL (3.4-5.0); ALKALINE PHOSPHATASE 53 U/L (46-116); BILIRUBIN - TOTAL 0.69 mg/dL (0.2-1.3); CALC OSMOLALITY 313 mosm/kg (275-300); CALCIUM 7.8 mg/dL (8.5-10.1); CARBON DIOXIDE 24.9 mmol/L (21.0-32.0); GLUCOSE 202 mg/dL (74-106); MAGNESIUM - SERUM 2.1 mg/dL (1.8-2.4); PROTEIN - SERUM 4.9 g/dL (6.4-8.2); SODIUM 150 mmol/L (136-145); UREA NITROGEN 40 mg/dL (7-18); eGFR NON AFRICAN AMERICAN 77 mL/min (90-120)
[2018-07-13 07:24] LABS: ALT (SGPT) 7 U/L (10-68)
[2018-07-13 07:27] LABS: CHLORIDE - SERUM 121 mmol/L (98-107)
[2018-07-14] VITALS (30 sets, daily range): BP systolic 108–134; BP diastolic 65–87
[2018-07-14 04:38] LABS: BASOPHILS 0.1 % (0-2); EOSINOPHILS 1.4 % (0-7); HEMATOCRIT 28.8 % (42.0-54.0); HEMOGLOBIN 9.7 g/dL (13.5-17.5); IMMATURE GRANULOCYTES 0.9 % (0-5); LYMPHOCYTES 39.6 % (15-50); MCH 29.5 pg (26.0-34.0); MCHC 33.7 g/dL (31.0-37.0); MCV 87.5 fL (80.0-100.0); MEAN PLATELET VOLUME 10.2 fL (7.4-10.4); MONOCYTES 4.2 % (2-11); NEUTROPHILS 53.8 % (40-80); PLATELET COUNT 455 10x3/uL (130-400); RBC 3.29 10x6/uL (4.20-6.10); RDW 15.7 % (11.5-14.5)
[2018-07-14 04:51] LABS: CALC OSMOLALITY 314 mosm/kg (275-300); CALCIUM 7.5 mg/dL (8.5-10.1); GLUCOSE 197 mg/dL (74-106); PHOSPHOROUS 3.4 mg/dL (2.5-4.9); POTASSIUM - SERUM 3.5 mmol/L (3.5-5.1); SODIUM 152 mmol/L (136-145); UREA NITROGEN 34 mg/dL (7-18); eGFR NON AFRICAN AMERICAN 77 mL/min (90-120)
[2018-07-14 04:52] LABS: CHLORIDE - SERUM 119 mmol/L (98-107)
[2018-07-15] VITALS (24 sets, daily range): BP systolic 119–147; BP diastolic 65–78
[2018-07-15 03:50] LABS: BASOPHILS 0.1 % (0-2); EOSINOPHILS 1.3 % (0-7); HEMATOCRIT 28.3 % (42.0-54.0); HEMOGLOBIN 9.5 g/dL (13.5-17.5); IMMATURE GRANULOCYTES 0.7 % (0-5); LYMPHOCYTES 41.4 % (15-50); MCH 29.2 pg (26.0-34.0); MCHC 33.6 g/dL (31.0-37.0); MCV 87.1 fL (80.0-100.0); MEAN PLATELET VOLUME 10.3 fL (7.4-10.4); MONOCYTES 4.5 % (2-11); PLATELET COUNT 548 10x3/uL (130-400); RBC 3.25 10x6/uL (4.20-6.10); RDW 15.3 % (11.5-14.5); WBC 31.2 10x3/uL (4.8-10.8)
[2018-07-15 04:08] LABS: ALBUMIN 1.3 g/dL (3.4-5.0); ANION GAP 12.9 mmol/L (8-16); CALCIUM 7.7 mg/dL (8.5-10.1); CARBON DIOXIDE 23.9 mmol/L (21.0-32.0); CREATININE - SERUM 1.1 mg/dL (0.6-1.3); MAGNESIUM - SERUM 1.9 mg/dL (1.8-2.4); PHOSPHOROUS 3.3 mg/dL (2.5-4.9); POTASSIUM - SERUM 3.8 mmol/L (3.5-5.1)
[2018-07-16] VITALS (29 sets, daily range): BP systolic 85–168; BP diastolic 55–85
[2018-07-16 04:34] LABS: BASOPHILS 0.1 % (0-2); EOSINOPHILS 1.2 % (0-7); HEMATOCRIT 27.8 % (42.0-54.0); IMMATURE GRANULOCYTES 0.7 % (0-5); LYMPHOCYTES 38.3 % (15-50); MCH 28.7 pg (26.0-34.0); MCHC 32.4 g/dL (31.0-37.0); MCV 88.5 fL (80.0-100.0); MEAN PLATELET VOLUME 10.5 fL (7.4-10.4); MONOCYTES 4.5 % (2-11); NEUTROPHILS 55.2 % (40-80); PLATELET COUNT 611 10x3/uL (130-400); RBC 3.14 10x6/uL (4.20-6.10); RDW 15.3 % (11.5-14.5); WBC 28.9 10x3/uL (4.8-10.8)
[2018-07-16 05:09] LABS: ALBUMIN 1.2 g/dL (3.4-5.0); ANION GAP 8.6 mmol/L (8-16); BILIRUBIN - TOTAL 0.46 mg/dL (0.2-1.3); CALCIUM 7.4 mg/dL (8.5-10.1); CARBON DIOXIDE 25.2 mmol/L (21.0-32.0); CREATININE - SERUM 1.2 mg/dL (0.6-1.3); MAGNESIUM - SERUM 1.8 mg/dL (1.8-2.4); PHOSPHOROUS 3.1 mg/dL (2.5-4.9); POTASSIUM - SERUM 3.8 mmol/L (3.5-5.1); PROTEIN - SERUM 4.9 g/dL (6.4-8.2)
[2018-07-16 10:00] LABS: INR 1.54 (0.85-1.17); PROTIME 17.7 SECONDS (11.6-15.0)
[2018-07-16 10:11] LABS: APTT 37.3 SECONDS (22.8-39.4)
[2018-07-17] VITALS (24 sets, daily range): BP systolic 111–135; BP diastolic 58–74
[2018-07-17 03:55] LABS: BASOPHILS 0.1 % (0-2); EOSINOPHILS 1.3 % (0-7); HEMATOCRIT 24.7 % (42.0-54.0); IMMATURE GRANULOCYTES 0.5 % (0-5); LYMPHOCYTES 37.1 % (15-50); MCH 29.1 pg (26.0-34.0); MCHC 32.4 g/dL (31.0-37.0); MCV 89.8 fL (80.0-100.0); MEAN PLATELET VOLUME 10.4 fL (7.4-10.4); MONOCYTES 5.4 % (2-11); NEUTROPHILS 55.6 % (40-80); PLATELET COUNT 481 10x3/uL (130-400); RBC 2.75 10x6/uL (4.20-6.10); RDW 15.4 % (11.5-14.5); WBC 20.1 10x3/uL (4.8-10.8)
[2018-07-17 04:07] LABS: ANION GAP 9.2 mmol/L (8-16); BILIRUBIN - TOTAL 0.33 mg/dL (0.2-1.3); CARBON DIOXIDE 25.7 mmol/L (21.0-32.0); CREATININE - SERUM 1.4 mg/dL (0.6-1.3); MAGNESIUM - SERUM 2.1 mg/dL (1.8-2.4); PHOSPHOROUS 3.8 mg/dL (2.5-4.9); POTASSIUM - SERUM 3.9 mmol/L (3.5-5.1); PROTEIN - SERUM 4.3 g/dL (6.4-8.2)
[2018-07-17 04:19] LABS: CALCIUM 6.9 mg/dL (8.5-10.1)
[2018-07-18] VITALS (24 sets, daily range): BP systolic 107–134; BP diastolic 64–80
[2018-07-18 04:37] LABS: BILIRUBIN - TOTAL 0.36 mg/dL (0.2-1.3); CARBON DIOXIDE 23.7 mmol/L (21.0-32.0); CREATININE - SERUM 1.3 mg/dL (0.6-1.3); MAGNESIUM - SERUM 1.9 mg/dL (1.8-2.4); POTASSIUM - SERUM 3.7 mmol/L (3.5-5.1); PROTEIN - SERUM 4.5 g/dL (6.4-8.2)
[2018-07-18 04:47] LABS: CALCIUM 6.9 mg/dL (8.5-10.1)
[2018-07-18 06:19] LABS: BASOPHILS 0.1 % (0-2); EOSINOPHILS 2.1 % (0-7); HEMATOCRIT 29.3 % (42.0-54.0); HEMOGLOBIN 9.8 g/dL (13.5-17.5); IMMATURE GRANULOCYTES 0.7 % (0-5); LYMPHOCYTES 31.4 % (15-50); MCH 29.2 pg (26.0-34.0); MCHC 33.4 g/dL (31.0-37.0); MCV 87.2 fL (80.0-100.0); MEAN PLATELET VOLUME 10.6 fL (7.4-10.4); MONOCYTES 4.8 % (2-11); NEUTROPHILS 60.9 % (40-80); PLATELET COUNT 466 10x3/uL (130-400); RBC 3.36 10x6/uL (4.20-6.10); RDW 15.8 % (11.5-14.5); WBC 20.6 10x3/uL (4.8-10.8)
[2018-07-19] VITALS (24 sets, daily range): BP systolic 109–149; BP diastolic 63–87
[2018-07-19 04:48] LABS: BASOPHILS 0.1 % (0-2); EOSINOPHILS 1.1 % (0-7); HEMATOCRIT 29.1 % (42.0-54.0); HEMOGLOBIN 9.5 g/dL (13.5-17.5); LYMPHOCYTES 32.9 % (15-50); MCH 28.4 pg (26.0-34.0); MCHC 32.6 g/dL (31.0-37.0); MCV 87.1 fL (80.0-100.0); MEAN PLATELET VOLUME 10.8 fL (7.4-10.4); MONOCYTES 6.3 % (2-11); NEUTROPHILS 58.6 % (40-80); PLATELET COUNT 505 10x3/uL (130-400); RBC 3.34 10x6/uL (4.20-6.10); RDW 15.3 % (11.5-14.5); WBC 19.8 10x3/uL (4.8-10.8)
[2018-07-19 05:42] LABS: ANION GAP 11.7 mmol/L (8-16); BILIRUBIN - TOTAL 0.45 mg/dL (0.2-1.3); CALCIUM 7.5 mg/dL (8.5-10.1); CARBON DIOXIDE 23.9 mmol/L (21.0-32.0); CREATININE - SERUM 1.6 mg/dL (0.6-1.3); POTASSIUM - SERUM 3.6 mmol/L (3.5-5.1); PROTEIN - SERUM 5.2 g/dL (6.4-8.2)
[2018-07-20] VITALS (24 sets, daily range): BP systolic 91–169; BP diastolic 55–95
[2018-07-20 03:51] LABS: BASOPHILS 0.1 % (0-2); EOSINOPHILS 1.1 % (0-7); HEMATOCRIT 27.8 % (42.0-54.0); HEMOGLOBIN 9.1 g/dL (13.5-17.5); IMMATURE GRANULOCYTES 0.9 % (0-5); LYMPHOCYTES 31.5 % (15-50); MCH 28.5 pg (26.0-34.0); MCHC 32.7 g/dL (31.0-37.0); MCV 87.1 fL (80.0-100.0); MEAN PLATELET VOLUME 10.4 fL (7.4-10.4); MONOCYTES 5.8 % (2-11); NEUTROPHILS 60.6 % (40-80); PLATELET COUNT 458 10x3/uL (130-400); RBC 3.19 10x6/uL (4.20-6.10); RDW 15.1 % (11.5-14.5); WBC 19.3 10x3/uL (4.8-10.8)
[2018-07-20 04:09] LABS: ANION GAP 8.3 mmol/L (8-16); BILIRUBIN - TOTAL 0.31 mg/dL (0.2-1.3); CALCIUM 7.4 mg/dL (8.5-10.1); CARBON DIOXIDE 24.5 mmol/L (21.0-32.0); CREATININE - SERUM 1.5 mg/dL (0.6-1.3); PHOSPHOROUS 3.9 mg/dL (2.5-4.9); POTASSIUM - SERUM 3.8 mmol/L (3.5-5.1); PROTEIN - SERUM 5.3 g/dL (6.4-8.2)
[2018-07-21] VITALS (25 sets, daily range): BP systolic 92–148; BP diastolic 58–84
[2018-07-21 04:02] LABS: BASOPHILS 0.1 % (0-2); HEMATOCRIT 25.8 % (42.0-54.0); HEMOGLOBIN 8.4 g/dL (13.5-17.5); IMMATURE GRANULOCYTES 0.7 % (0-5); LYMPHOCYTES 26.7 % (15-50); MCH 28.5 pg (26.0-34.0); MCHC 32.6 g/dL (31.0-37.0); MCV 87.5 fL (80.0-100.0); MEAN PLATELET VOLUME 10.2 fL (7.4-10.4); MONOCYTES 5.6 % (2-11); NEUTROPHILS 65.9 % (40-80); RBC 2.95 10x6/uL (4.20-6.10); RDW 15.1 % (11.5-14.5); WBC 18.5 10x3/uL (4.8-10.8)
[2018-07-21 04:10] LABS: PLATELET COUNT 355 10x3/uL (130-400)
[2018-07-21 04:29] LABS: ANION GAP 8.8 mmol/L (8-16); BILIRUBIN - TOTAL 0.29 mg/dL (0.2-1.3); CALCIUM 7.4 mg/dL (8.5-10.1); CARBON DIOXIDE 26.8 mmol/L (21.0-32.0); CREATININE - SERUM 1.7 mg/dL (0.6-1.3); POTASSIUM - SERUM 3.6 mmol/L (3.5-5.1); PROTEIN - SERUM 5.4 g/dL (6.4-8.2)
[2018-07-22] VITALS (24 sets, daily range): BP systolic 105–161; BP diastolic 59–90
[2018-07-22 04:21] LABS: BASOPHILS 0.1 % (0-2); EOSINOPHILS 1.2 % (0-7); HEMATOCRIT 24.2 % (42.0-54.0); IMMATURE GRANULOCYTES 0.6 % (0-5); LYMPHOCYTES 30.5 % (15-50); MCH 28.7 pg (26.0-34.0); MCHC 33.1 g/dL (31.0-37.0); MCV 86.7 fL (80.0-100.0); MEAN PLATELET VOLUME 10.2 fL (7.4-10.4); MONOCYTES 6.5 % (2-11); NEUTROPHILS 61.1 % (40-80); PLATELET COUNT 321 10x3/uL (130-400); RBC 2.79 10x6/uL (4.20-6.10); WBC 17.4 10x3/uL (4.8-10.8)
[2018-07-22 04:38] LABS: ANION GAP 9.9 mmol/L (8-16); BILIRUBIN - TOTAL 0.31 mg/dL (0.2-1.3); CALCIUM 7.3 mg/dL (8.5-10.1); CARBON DIOXIDE 25.7 mmol/L (21.0-32.0); CREATININE - SERUM 1.6 mg/dL (0.6-1.3); PHOSPHOROUS 3.6 mg/dL (2.5-4.9); POTASSIUM - SERUM 3.6 mmol/L (3.5-5.1); PROTEIN - SERUM 5.5 g/dL (6.4-8.2)
[2018-07-23] VITALS (17 sets, daily range): BP systolic 128–156; BP diastolic 73–90
[2018-07-23 04:19] LABS: BASOPHILS 0.1 % (0-2); EOSINOPHILS 1.3 % (0-7); HEMATOCRIT 25.6 % (42.0-54.0); HEMOGLOBIN 8.5 g/dL (13.5-17.5); IMMATURE GRANULOCYTES 0.9 % (0-5); LYMPHOCYTES 33.5 % (15-50); MCH 28.7 pg (26.0-34.0); MCHC 33.2 g/dL (31.0-37.0); MCV 86.5 fL (80.0-100.0); MEAN PLATELET VOLUME 10.4 fL (7.4-10.4); MONOCYTES 6.7 % (2-11); NEUTROPHILS 57.5 % (40-80); PLATELET COUNT 307 10x3/uL (130-400); RBC 2.96 10x6/uL (4.20-6.10); RDW 14.8 % (11.5-14.5); WBC 17.1 10x3/uL (4.8-10.8)
[2018-07-23 04:42] LABS: ALBUMIN 1.2 g/dL (3.4-5.0); ANION GAP 8.9 mmol/L (8-16); BILIRUBIN - TOTAL 0.34 mg/dL (0.2-1.3); CALCIUM 7.6 mg/dL (8.5-10.1); CARBON DIOXIDE 25.4 mmol/L (21.0-32.0); CREATININE - SERUM 1.5 mg/dL (0.6-1.3); MAGNESIUM - SERUM 2.2 mg/dL (1.8-2.4); PHOSPHOROUS 3.5 mg/dL (2.5-4.9); POTASSIUM - SERUM 3.3 mmol/L (3.5-5.1); PROTEIN - SERUM 5.9 g/dL (6.4-8.2)
[2018-07-24] VITALS (24 sets, daily range): BP systolic 121–146; BP diastolic 74–89
[2018-07-24 04:37] LABS: BASOPHILS 0.1 % (0-2); EOSINOPHILS 1.6 % (0-7); HEMATOCRIT 24.1 % (42.0-54.0); HEMOGLOBIN 7.9 g/dL (13.5-17.5); IMMATURE GRANULOCYTES 1.1 % (0-5); MCH 28.2 pg (26.0-34.0); MCHC 32.8 g/dL (31.0-37.0); MCV 86.1 fL (80.0-100.0); MEAN PLATELET VOLUME 10.2 fL (7.4-10.4); NEUTROPHILS 55.2 % (40-80); PLATELET COUNT 248 10x3/uL (130-400); RDW 14.7 % (11.5-14.5); WBC 15.4 10x3/uL (4.8-10.8)
[2018-07-24 05:14] LABS: ANION GAP 9.9 mmol/L (8-16); BILIRUBIN - TOTAL 0.26 mg/dL (0.2-1.3); CALCIUM 7.2 mg/dL (8.5-10.1); CARBON DIOXIDE 25.4 mmol/L (21.0-32.0); CREATININE - SERUM 1.5 mg/dL (0.6-1.3); POTASSIUM - SERUM 3.3 mmol/L (3.5-5.1); PROTEIN - SERUM 5.6 g/dL (6.4-8.2)
[2018-07-24 18:10] LABS: ACID FAST SMEAR Negative (()); AFB SPECIMEN PROCESSING Concentration (())
[2018-07-25] VITALS (24 sets, daily range): BP systolic 131–160; BP diastolic 83–98
[2018-07-25 04:35] LABS: BASOPHILS 0.1 % (0-2); EOSINOPHILS 2.7 % (0-7); HEMATOCRIT 25.1 % (42.0-54.0); HEMOGLOBIN 8.2 g/dL (13.5-17.5); LYMPHOCYTES 35.6 % (15-50); MCH 28.3 pg (26.0-34.0); MCHC 32.7 g/dL (31.0-37.0); MCV 86.6 fL (80.0-100.0); MEAN PLATELET VOLUME 9.9 fL (7.4-10.4); MONOCYTES 7.2 % (2-11); NEUTROPHILS 53.4 % (40-80); PLATELET COUNT 238 10x3/uL (130-400); RDW 14.6 % (11.5-14.5); WBC 16.5 10x3/uL (4.8-10.8)
[2018-07-25 05:04] LABS: ALBUMIN 1.2 g/dL (3.4-5.0); BILIRUBIN - TOTAL 0.27 mg/dL (0.2-1.3); CALCIUM 7.1 mg/dL (8.5-10.1); CARBON DIOXIDE 25.8 mmol/L (21.0-32.0); CREATININE - SERUM 1.3 mg/dL (0.6-1.3); MAGNESIUM - SERUM 2.1 mg/dL (1.8-2.4); PHOSPHOROUS 3.3 mg/dL (2.5-4.9); PROTEIN - SERUM 5.2 g/dL (6.4-8.2)
[2018-07-25 05:06] LABS: POTASSIUM - SERUM 3.8 mmol/L (3.5-5.1)
[2018-07-26] VITALS (25 sets, daily range): BP systolic 108–148; BP diastolic 63–89
[2018-07-26 03:45] LABS: BASOPHILS 0.1 % (0-2); EOSINOPHILS 3.2 % (0-7); HEMATOCRIT 24.8 % (42.0-54.0); HEMOGLOBIN 8.1 g/dL (13.5-17.5); LYMPHOCYTES 28.7 % (15-50); MCH 28.2 pg (26.0-34.0); MCHC 32.7 g/dL (31.0-37.0); MCV 86.4 fL (80.0-100.0); MEAN PLATELET VOLUME 9.5 fL (7.4-10.4); MONOCYTES 6.9 % (2-11); NEUTROPHILS 60.1 % (40-80); PLATELET COUNT 198 10x3/uL (130-400); RBC 2.87 10x6/uL (4.20-6.10); RDW 14.5 % (11.5-14.5); WBC 15.1 10x3/uL (4.8-10.8)
[2018-07-26 04:02] LABS: ALBUMIN 1.3 g/dL (3.4-5.0); ANION GAP 7.1 mmol/L (8-16); BILIRUBIN - TOTAL 0.22 mg/dL (0.2-1.3); CALCIUM 7.4 mg/dL (8.5-10.1); CARBON DIOXIDE 28.1 mmol/L (21.0-32.0); CREATININE - SERUM 1.3 mg/dL (0.6-1.3); PHOSPHOROUS 3.4 mg/dL (2.5-4.9); PROTEIN - SERUM 5.8 g/dL (6.4-8.2)
[2018-07-26 04:03] LABS: POTASSIUM - SERUM 3.2 mmol/L (3.5-5.1)
[2018-07-27] VITALS (24 sets, daily range): BP systolic 126–155; BP diastolic 71–93
[2018-07-27 06:04] LABS: BASOPHILS 0.2 % (0-2); EOSINOPHILS 3.5 % (0-7); HEMATOCRIT 25.2 % (42.0-54.0); HEMOGLOBIN 8.2 g/dL (13.5-17.5); LYMPHOCYTES 32.1 % (15-50); MCH 28.1 pg (26.0-34.0); MCHC 32.5 g/dL (31.0-37.0); MCV 86.3 fL (80.0-100.0); NEUTROPHILS 56.2 % (40-80); PLATELET COUNT 216 10x3/uL (130-400); RBC 2.92 10x6/uL (4.20-6.10); RDW 14.4 % (11.5-14.5); WBC 16.7 10x3/uL (4.8-10.8)
[2018-07-27 06:44] LABS: ANION GAP 11.5 mmol/L (8-16); CALCIUM 7.7 mg/dL (8.5-10.1); CARBON DIOXIDE 25.8 mmol/L (21.0-32.0); CREATININE - SERUM 1.3 mg/dL (0.6-1.3); POTASSIUM - SERUM 3.3 mmol/L (3.5-5.1)
[2018-07-28] VITALS (24 sets, daily range): BP systolic 120–153; BP diastolic 13–99
[2018-07-28 05:46] LABS: BASOPHILS 0.1 % (0-2); EOSINOPHILS 2.7 % (0-7); HEMATOCRIT 23.4 % (42.0-54.0); HEMOGLOBIN 7.6 g/dL (13.5-17.5); IMMATURE GRANULOCYTES 0.8 % (0-5); LYMPHOCYTES 33.6 % (15-50); MCH 27.8 pg (26.0-34.0); MCHC 32.5 g/dL (31.0-37.0); MCV 85.7 fL (80.0-100.0); MEAN PLATELET VOLUME 9.4 fL (7.4-10.4); MONOCYTES 6.6 % (2-11); NEUTROPHILS 56.2 % (40-80); PLATELET COUNT 228 10x3/uL (130-400); RBC 2.73 10x6/uL (4.20-6.10); WBC 16.9 10x3/uL (4.8-10.8)
[2018-07-28 06:27] LABS: ANION GAP 10.5 mmol/L (8-16); BILIRUBIN - TOTAL 0.6 mg/dL (0.2-1.3); CALCIUM 8.1 mg/dL (8.5-10.1); CARBON DIOXIDE 27.8 mmol/L (21.0-32.0); CREATININE - SERUM 1.4 mg/dL (0.6-1.3); MAGNESIUM - SERUM 2.1 mg/dL (1.8-2.4); PHOSPHOROUS 3.8 mg/dL (2.5-4.9); POTASSIUM - SERUM 3.3 mmol/L (3.5-5.1); PROTEIN - SERUM 6.6 g/dL (6.4-8.2)
[2018-07-29] VITALS (15 sets, daily range): BP systolic 124–155; BP diastolic 69–94; Ht 177.8 cm; Wt 326.2 kg
[2018-07-29 03:39] LABS: BASOPHILS 0.1 % (0-2); EOSINOPHILS 4.9 % (0-7); HEMATOCRIT 26.3 % (42.0-54.0); HEMOGLOBIN 8.8 g/dL (13.5-17.5); IMMATURE GRANULOCYTES 0.6 % (0-5); LYMPHOCYTES 33.3 % (15-50); MCH 28.7 pg (26.0-34.0); MCHC 33.5 g/dL (31.0-37.0); MCV 85.7 fL (80.0-100.0); MEAN PLATELET VOLUME 9.1 fL (7.4-10.4); MONOCYTES 7.5 % (2-11); NEUTROPHILS 53.6 % (40-80); PLATELET COUNT 221 10x3/uL (130-400); RBC 3.07 10x6/uL (4.20-6.10); RDW 14.1 % (11.5-14.5); WBC 15.7 10x3/uL (4.8-10.8)
[2018-07-29 03:55] LABS: ALBUMIN 2.6 g/dL (3.4-5.0); ANION GAP 11.7 mmol/L (8-16); BILIRUBIN - TOTAL 0.62 mg/dL (0.2-1.3); CALCIUM 8.4 mg/dL (8.5-10.1); CARBON DIOXIDE 27.5 mmol/L (21.0-32.0); CREATININE - SERUM 1.4 mg/dL (0.6-1.3); MAGNESIUM - SERUM 2.3 mg/dL (1.8-2.4); PHOSPHOROUS 4.8 mg/dL (2.5-4.9); POTASSIUM - SERUM 3.2 mmol/L (3.5-5.1); PROTEIN - SERUM 7.2 g/dL (6.4-8.2)
[2018-07-29 11:10] LABS: FUNGUS STAIN Final report (())
[2018-07-30 05:21] VITALS: BP 154/84
[2018-07-30 05:59] LABS: BASOPHILS 0.1 % (0-2); EOSINOPHILS 4.8 % (0-7); HEMATOCRIT 28.4 % (42.0-54.0); HEMOGLOBIN 9.4 g/dL (13.5-17.5); IMMATURE GRANULOCYTES 0.6 % (0-5); MCH 28.1 pg (26.0-34.0); MCHC 33.1 g/dL (31.0-37.0); MEAN PLATELET VOLUME 9.1 fL (7.4-10.4); MONOCYTES 5.2 % (2-11); NEUTROPHILS 53.3 % (40-80); PLATELET COUNT 245 10x3/uL (130-400); RBC 3.34 10x6/uL (4.20-6.10); RDW 14.3 % (11.5-14.5); WBC 17.2 10x3/uL (4.8-10.8)
[2018-07-30 06:09] LABS: ANION GAP 12.8 mmol/L (8-16); CALCIUM 8.5 mg/dL (8.5-10.1); CARBON DIOXIDE 24.2 mmol/L (21.0-32.0); CREATININE - SERUM 1.6 mg/dL (0.6-1.3); MAGNESIUM - SERUM 2.3 mg/dL (1.8-2.4)
[2018-07-30 09:26] VITALS: BP 158/83
[2018-07-30 12:28] VITALS: BP 137/87
[2018-07-30 16:13] LABS: FUNGUS CULTURE RESULT 1 Candida albicans (()); FUNGUS MYCOLOGY CULTURE Preliminary report (())
[2018-07-30 16:14] VITALS: BP 128/68
[2018-07-30 20:00] VITALS: BP 123/79
[2018-07-30 20:36] LABS: ANION GAP 12.9 mmol/L (8-16); BILIRUBIN - TOTAL 0.38 mg/dL (0.2-1.3); CALCIUM 8.5 mg/dL (8.5-10.1); CARBON DIOXIDE 24.7 mmol/L (21.0-32.0); CREATININE - SERUM 1.8 mg/dL (0.6-1.3); POTASSIUM - SERUM 3.6 mmol/L (3.5-5.1); PROTEIN - SERUM 7.5 g/dL (6.4-8.2)
[2018-07-31 06:00] VITALS: BP 162/94
[2018-07-31 06:08] LABS: BASOPHILS 0.1 % (0-2); EOSINOPHILS 5.4 % (0-7); HEMATOCRIT 28.1 % (42.0-54.0); HEMOGLOBIN 9.1 g/dL (13.5-17.5); IMMATURE GRANULOCYTES 0.5 % (0-5); LYMPHOCYTES 38.8 % (15-50); MCHC 32.4 g/dL (31.0-37.0); MCV 86.5 fL (80.0-100.0); MEAN PLATELET VOLUME 9.3 fL (7.4-10.4); MONOCYTES 7.1 % (2-11); NEUTROPHILS 48.1 % (40-80); PLATELET COUNT 249 10x3/uL (130-400); RBC 3.25 10x6/uL (4.20-6.10); RDW 14.5 % (11.5-14.5); WBC 17.4 10x3/uL (4.8-10.8)
[2018-07-31 06:21] LABS: CALCIUM 8.5 mg/dL (8.5-10.1); CREATININE - SERUM 1.6 mg/dL (0.6-1.3); MAGNESIUM - SERUM 2.4 mg/dL (1.8-2.4)
[2018-07-31 06:22] LABS: ANION GAP 17.6 mmol/L (8-16); CARBON DIOXIDE 23.7 mmol/L (21.0-32.0); POTASSIUM - SERUM 3.3 mmol/L (3.5-5.1)
[2018-07-31 08:17] VITALS: BP 142/98
[2018-07-31 16:38] VITALS: BP 108/78
[2018-07-31 22:11] VITALS: BP 152/92
[2018-08-01 04:12] VITALS: BP 159/78
[2018-08-01 08:28] LABS: CALCIUM 9.3 mg/dL (8.5-10.1); CARBON DIOXIDE 23.3 mmol/L (21.0-32.0); CREATININE - SERUM 1.7 mg/dL (0.6-1.3); MAGNESIUM - SERUM 2.5 mg/dL (1.8-2.4); POTASSIUM - SERUM 3.3 mmol/L (3.5-5.1)
[2018-08-01 09:12] LABS: BASOPHILS 0.1 % (0-2); EOSINOPHILS 3.6 % (0-7); HEMATOCRIT 29.7 % (42.0-54.0); HEMOGLOBIN 9.5 g/dL (13.5-17.5); IMMATURE GRANULOCYTES 0.4 % (0-5); MCH 27.9 pg (26.0-34.0); MCV 87.4 fL (80.0-100.0); MEAN PLATELET VOLUME 9.1 fL (7.4-10.4); MONOCYTES 5.4 % (2-11); NEUTROPHILS 49.5 % (40-80); PLATELET COUNT 273 10x3/uL (130-400); RDW 14.6 % (11.5-14.5); WBC 20.9 10x3/uL (4.8-10.8)
[2018-08-01] MEDS ORDERED: CARDENE20 MG PO (09:12)
[2018-08-01] MEDS ORDERED: HYDROCODON-ACE1 EAC7 PO (09:12)
[2018-08-01] MEDS ORDERED: CALMOSEPTINE OI71 GM TOPICAL (09:13)
[2018-08-01] MEDS ORDERED: MEGACE400 MG/10 PO (09:13)
[2018-08-01] MEDS ORDERED: PEPCID20 MG PO (09:14)
[2018-08-01] MEDS ORDERED: FLORAJEN3 CAPS460 MG PO (09:14)
[2018-08-01] MEDS ORDERED: MELATONIN 3 MG1 TAB PO (09:14)
[2018-08-01 09:23] VITALS: BP 162/89
[2018-08-01 17:02] VITALS: BP 134/86
[2018-08-01 21:08] VITALS: BP 138/86
[2018-08-02 04:45] VITALS: BP 148/101
[2018-08-02 05:13] LABS: HEMATOCRIT 33.2 % (42.0-54.0); HEMOGLOBIN 10.9 g/dL (13.5-17.5); LYMPHOCYTES 39.8 % (15-50); MCH 28.7 pg (26.0-34.0); MCHC 32.8 g/dL (31.0-37.0); MCV 87.4 fL (80.0-100.0); MEAN PLATELET VOLUME 9.1 fL (7.4-10.4); NEUTROPHILS 50.2 % (40-80); PLATELET COUNT 309 10x3/uL (130-400); RDW 14.3 % (11.5-14.5); WBC 23.8 10x3/uL (4.8-10.8)
[2018-08-02 05:17] LABS: ANION GAP 20.9 mmol/L (8-16); CARBON DIOXIDE 21.8 mmol/L (21.0-32.0); CREATININE - SERUM 1.7 mg/dL (0.6-1.3); MAGNESIUM - SERUM 2.7 mg/dL (1.8-2.4); POTASSIUM - SERUM 3.7 mmol/L (3.5-5.1)
[2018-08-02 08:52] VITALS: BP 147/91
[2018-08-03] MEDS ORDERED: ACETAMINOPHEN325 MG PO (05:48)
[2018-08-03] MEDS ORDERED: SENNA PLUS TA1 UDTAB PO (05:49)
[2018-08-08 15:23] LABS: FUNGUS MYCOLOGY CULTURE Final report (())
== END 2018-08-02 15:39 | DRG 329 ==
LOC: D.ER 19:39 → D.ICU 07-04 00:11 → D.EDHOLD 07-04 00:11 → D.MS 07-04 00:11 → D.ICU 07-04 10:41 → D.MS 07-29 16:16
PROVIDERS: Emergency Medicine; Internal Medicine; Internal Medicine Pulmonary Disease; Radiology Vascular & Interventional Radiology; Surgery
PROC: 0DBL0ZZ Excision of Transverse Colon, Open Approach (ICD-10-PCS; 2018-07-06)
PROC: 05HM33Z Insertion of Infusion Device into Right Internal Jugular Vein, Percutaneous Approach (ICD-10-PCS; principal; 2018-07-06 11:00)
PROC: 0DBN0ZZ Excision of Sigmoid Colon, Open Approach (ICD-10-PCS; 2018-07-06 11:00)
PROC: 0W993ZZ Drainage of Right Pleural Cavity, Percutaneous Approach (ICD-10-PCS; 2018-07-10)
PROC: 0W993ZZ Drainage of Right Pleural Cavity, Percutaneous Approach (ICD-10-PCS; 2018-07-10)
PROC: 0BH17EZ Insertion of Endotracheal Airway into Trachea, Via Natural or Artificial Opening (ICD-10-PCS; 2018-07-16)
PROC: 5A1955Z Respiratory Ventilation, Greater than 96 Consecutive Hours (ICD-10-PCS; 2018-07-16)
PROC: 0W993ZZ Drainage of Right Pleural Cavity, Percutaneous Approach (ICD-10-PCS; 2018-07-16)
PROC: 0B9B8ZZ Drainage of Left Lower Lobe Bronchus, Via Natural or Artificial Opening Endoscopic (ICD-10-PCS; 2018-07-23)
PROC: 0B968ZZ Drainage of Right Lower Lobe Bronchus, Via Natural or Artificial Opening Endoscopic (ICD-10-PCS; 2018-07-23)
DX: K57.80 Diverticulitis of intestine, part unspecified, with perforation and abscess without bleeding (principal); J96.01 Acute respiratory failure with hypoxia; A41.52 Sepsis due to Pseudomonas; J69.0 Pneumonitis due to inhalation of food and vomit; G93.41 Metabolic encephalopathy; E87.0 Hyperosmolality and hypernatremia; J98.11 Atelectasis; J90 Pleural effusion, not elsewhere classified; K56.7 Ileus, unspecified; J44.1 Chronic obstructive pulmonary disease with (acute) exacerbation; E87.1 Hypo-osmolality and hyponatremia; E46 Unspecified protein-calorie malnutrition; I95.9 Hypotension, unspecified; K59.00 Constipation, unspecified; R10.9 Unspecified abdominal pain; R79.89 Other specified abnormal findings of blood chemistry; E83.39 Other disorders of phosphorus metabolism; E83.51 Hypocalcemia; E88.09 Other disorders of plasma-protein metabolism, not elsewhere classified; R00.0 Tachycardia, unspecified; D64.9 Anemia, unspecified; I10 Essential (primary) hypertension; N18.9 Chronic kidney disease, unspecified; R53.81 Other malaise; E87.6 Hypokalemia; J30.9 Allergic rhinitis, unspecified

== ENCOUNTER 2018-08-03 01:58 | Inpatient (IN) | payer MEDICARE ==
[~2018-08-03] VITALS: Ht 177.8 cm; Wt 60.6 kg
--- NOTE | ~2018-08-03 | OP ---
PATIENT NAME: MARIE JIMENEZ MEDICAL RECORD: [id number] :40 LOCATION:[id number] ADMISSION DATE:08/03/18 SURGEON: LEFTY ALICIA MD DATE OF OPERATION: 08/11/2018 PREOPERATIVE DIAGNOSES: 1. Acute malnutrition. 2. Feeding problems. 3. Failed swallowing evaluation. POSTOPERATIVE DIAGNOSES: 1. Acute malnutrition. 2. Feeding problems. 3. Failed swallowing evaluation. 4. Small hiatal hernia. PROCEDURES: 1. Esophagogastroduodenoscopy with antral biopsies. 2. Percutaneous endoscopic gastrostomy tube placement, 20-[place]inese. SURGEON: Lefty Alicia MD SUPERVISOR OF OPERATIONS: None. BLOOD LOSS: Minimal. ANESTHESIA: IV sedation with local. COMPLICATIONS: None. INDICATION: Acute malnutrition. The antral biopsies were performed to rule out H. pylori. OPERATIVE COURSE: The patient was conveyed to the endoscopy suite electively on 08/11/2018. IV sedation was induced by the anesthesia staff. A bite block was inserted. A gastroscope was inserted into the mouth. It was advanced easily into the hypopharynx. The esophagus was easily intubated as were stomach and duodenum. Upon withdrawal, retroflexed and angulus views were obtained. Antral biopsies were obtained. I cleansed the anterior abdominal wall skin. I transilluminated the anterior abdominal wall. I indented the anterior abdominal wall and was able to visualize this endoscopically. I chose an area in the left upper quadrant for insertion of the gastrostomy tube. This area was infiltrated with a local anesthetic. A skin incision was accomplished. Through the skin incision, I advanced an Angiocath and punctured the fundus of the stomach. A guidewire was advanced through the Angiocath. This was grasped with an endoscopic snare and was withdrawn out through the mouth. The wire was attached to a pull-type gastrostomy tube, which was then pulled into place. Hub and flange devices were attached. I then re-endoscoped the patient's esophagus and stomach. There has been no evidence of false passage or perforation. The endoscope was then withdrawn. An abdominal binder was placed around the patient to help prevent him from pulling out the gastrostomy tube, which would be disastrous, which would require an emergent procedure to fix the hole in the stomach, as I have explained to the patient's family. OPERATIVE REPORT [id number] MARIE JIMENEZ TRANSINT:[id number] Voice Confirmation ID: [id number] DOCUMENT ID: [id number] LEFTY ALICIA MD at 1331 CC: ELVIA CHARLES MD, CELENA FARIAS MD and SAE YEE MD [id number] DICTATION DATE: 08/11/18 1608 AXLE TURNER: 08/11/18 1720 DIS IN 08/15/18 [place] [id number] [place] [id number]
[~2018-08-03 01:58] MED LIST: CALMOSEPTINE OI71 GM TOPICAL; CARDENE20 MG PO; FISH OIL 1,0001 CA1 PO; FLAXSEED OIL1000 MG PO; FLORAJEN3 CAPS460 MG PO; GLUCOSAMINE & C1 CAP PO; HYDROCODON-ACE1 EAC7 PO; IBUPROFEN800 MG; MEGACE400 MG/10 PO; MELATONIN 3 MG1 TAB PO; MULTIPLE VITAMI1 TA1 PO; PEPCID20 MG PO
[2018-08-03 02:36] LABS: APPEARANCE CLEAR (CLEAR); COLOR YELLOW (YELLOW); SPECIFIC GRAVITY 1.015 (1.005-1.020)
[2018-08-03 02:37] LABS: HEMOGLOBIN 11.2 g/dL (13.5-17.5); MCH 28.6 pg (26.0-34.0); MCV 89.5 fL (80.0-100.0); MEAN PLATELET VOLUME 9.3 fL (7.4-10.4); PLATELET COUNT 307 10x3/uL (130-400); RBC 3.91 10x6/uL (4.20-6.10); RDW 15.1 % (11.5-14.5); WBC 34.8 10x3/uL (4.8-10.8)
[2018-08-03 02:37] LABS: AMORPHOUS SEDIMENT <1+ /lpf (NONE SEEN); BACTERIA NONE SEEN /hpf (NONE SEEN); BILIRUBIN NEGATIVE (NEGATIVE); EPITHELIAL CELLS NSEEN /hpf (0-5); GLUCOSE NEGATIVE (NEGATIVE); GRANULAR CAST OCC /lpf (NONE SEEN); KETONE NEGATIVE (NEGATIVE); NITRITE NEGATIVE (NEGATIVE); PROTEIN 1+ mg/dL (NEGATIVE); UROBILINOGEN NORMAL (NORMAL); WHITE CELLS - URINE RARE /hpf (0-5)
[2018-08-03 02:52] LABS: EOSINOPHILS 2 % (0-7); LYMPHOCYTES 35 % (15-50); MONOCYTES 5 % (2-11); NEUTROPHILS 51 % (40-80); PLATELET ESTIMATE NORMAL
[2018-08-03 02:56] LABS: ALBUMIN 4.1 g/dL (3.4-5.0); BILIRUBIN - TOTAL 0.55 mg/dL (0.2-1.3); CALCIUM 9.5 mg/dL (8.5-10.1); CARBON DIOXIDE 22.2 mmol/L (21.0-32.0); CREATININE - SERUM 1.8 mg/dL (0.6-1.3)
[2018-08-03 03:00] LABS: ANION GAP 17.8 mmol/L (8-16)
[2018-08-03 03:17] VITALS: BP 152/98
[2018-08-03 05:04] VITALS: BP 150/88
[2018-08-03 05:20] VITALS: BP 150/88; BMI 25.4
[2018-08-03] MEDS ORDERED: ACETAMINOPHEN325 MG PO (05:48)
[2018-08-03] MEDS ORDERED: SENNA PLUS TA1 UDTAB PO (05:49)
[2018-08-03 08:46] VITALS: BP 157/82
[2018-08-03 16:38] VITALS: BP 130/86
[2018-08-04] VITALS: BP 138/82
[2018-08-04 05:04] VITALS: BP 151/89
[2018-08-04 06:12] LABS: BASOPHILS 0.1 % (0-2); EOSINOPHILS 0.8 % (0-7); HEMATOCRIT 31.9 % (42.0-54.0); HEMOGLOBIN 9.9 g/dL (13.5-17.5); IMMATURE GRANULOCYTES 0.3 % (0-5); LYMPHOCYTES 33.9 % (15-50); MCH 27.7 pg (26.0-34.0); MCV 89.4 fL (80.0-100.0); MEAN PLATELET VOLUME 9.8 fL (7.4-10.4); MONOCYTES 3.6 % (2-11); NEUTROPHILS 61.3 % (40-80); PLATELET COUNT 290 10x3/uL (130-400); RBC 3.57 10x6/uL (4.20-6.10); RDW 15.3 % (11.5-14.5); WBC 30.6 10x3/uL (4.8-10.8)
[2018-08-04 06:18] LABS: ANION GAP 19.1 mmol/L (8-16); CALCIUM 8.9 mg/dL (8.5-10.1); CARBON DIOXIDE 18.3 mmol/L (21.0-32.0); CREATININE - SERUM 1.8 mg/dL (0.6-1.3); POTASSIUM - SERUM 3.4 mmol/L (3.5-5.1)
[2018-08-04 10:08] VITALS: BP 116/54
[2018-08-04 16:12] VITALS: BP 138/81
[2018-08-04 20:00] VITALS: BP 162/91
[2018-08-05 05:45] LABS: BASOPHILS 0.1 % (0-2); EOSINOPHILS 2.2 % (0-7); HEMATOCRIT 30.4 % (42.0-54.0); HEMOGLOBIN 9.5 g/dL (13.5-17.5); IMMATURE GRANULOCYTES 0.4 % (0-5); LYMPHOCYTES 33.9 % (15-50); MCH 27.9 pg (26.0-34.0); MCHC 31.3 g/dL (31.0-37.0); MCV 89.1 fL (80.0-100.0); MEAN PLATELET VOLUME 9.2 fL (7.4-10.4); MONOCYTES 3.7 % (2-11); NEUTROPHILS 59.7 % (40-80); PLATELET COUNT 217 10x3/uL (130-400); RBC 3.41 10x6/uL (4.20-6.10); RDW 15.2 % (11.5-14.5); WBC 25.3 10x3/uL (4.8-10.8)
[2018-08-05 05:48] LABS: ALBUMIN 3.2 g/dL (3.4-5.0); ANION GAP 15.8 mmol/L (8-16); BILIRUBIN - TOTAL 0.7 mg/dL (0.2-1.3); CALCIUM 8.9 mg/dL (8.5-10.1); CARBON DIOXIDE 21.6 mmol/L (21.0-32.0); CREATININE - SERUM 1.7 mg/dL (0.6-1.3); POTASSIUM - SERUM 3.4 mmol/L (3.5-5.1); PROTEIN - SERUM 7.8 g/dL (6.4-8.2)
[2018-08-05 05:54] VITALS: BP 147/90
[2018-08-05 09:21] VITALS: BP 143/78
[2018-08-05 11:57] VITALS: BP 105/69
[2018-08-05 15:47] VITALS: BMI 25.3
[2018-08-05 20:00] VITALS: BP 127/79
[2018-08-06 06:15] LABS: BASOPHILS 0.2 % (0-2); HEMATOCRIT 26.6 % (42.0-54.0); HEMOGLOBIN 8.5 g/dL (13.5-17.5); IMMATURE GRANULOCYTES 0.5 % (0-5); LYMPHOCYTES 34.9 % (15-50); MCH 27.7 pg (26.0-34.0); MONOCYTES 5.3 % (2-11); NEUTROPHILS 56.1 % (40-80); PLATELET COUNT 201 10x3/uL (130-400); RBC 3.07 10x6/uL (4.20-6.10); RDW 15.3 % (11.5-14.5); WBC 19.9 10x3/uL (4.8-10.8)
[2018-08-06 06:19] LABS: MCV 86.6 fL (80.0-100.0)
[2018-08-06 06:40] LABS: ALBUMIN 2.9 g/dL (3.4-5.0); ANION GAP 18.7 mmol/L (8-16); BILIRUBIN - TOTAL 0.56 mg/dL (0.2-1.3); CALCIUM 8.7 mg/dL (8.5-10.1); CARBON DIOXIDE 18.5 mmol/L (21.0-32.0); CREATININE - SERUM 1.5 mg/dL (0.6-1.3); POTASSIUM - SERUM 3.2 mmol/L (3.5-5.1); PROTEIN - SERUM 7.4 g/dL (6.4-8.2)
[2018-08-06 10:30] VITALS: BP 140/80
[2018-08-06 13:24] VITALS: BP 110/82
[2018-08-07] VITALS: BP 135/87
[2018-08-07 04:00] VITALS: BP 117/71
[2018-08-07 07:01] LABS: CREATININE - URINE 54.4 mg/dL (30-125); PRO/CRE RATIO URINE 2.5 mg/g; PROTEIN - URINE 135.5 mg/dL (0.0-11.9)
[2018-08-07 07:31] LABS: BASOPHILS 0.1 % (0-2); EOSINOPHILS 2.1 % (0-7); HEMATOCRIT 27.6 % (42.0-54.0); HEMOGLOBIN 8.8 g/dL (13.5-17.5); IMMATURE GRANULOCYTES 0.7 % (0-5); LYMPHOCYTES 37.3 % (15-50); MCHC 31.9 g/dL (31.0-37.0); MCV 87.9 fL (80.0-100.0); MEAN PLATELET VOLUME 10.2 fL (7.4-10.4); NEUTROPHILS 53.8 % (40-80); RBC 3.14 10x6/uL (4.20-6.10); RDW 15.5 % (11.5-14.5); WBC 18.9 10x3/uL (4.8-10.8)
[2018-08-07 07:35] LABS: PLATELET COUNT 125 10x3/uL (130-400)
[2018-08-07 07:44] LABS: ALBUMIN 2.6 g/dL (3.4-5.0); ANION GAP 16.1 mmol/L (8-16); BILIRUBIN - TOTAL 0.54 mg/dL (0.2-1.3); CALCIUM 8.5 mg/dL (8.5-10.1); CARBON DIOXIDE 17.4 mmol/L (21.0-32.0); CREATININE - SERUM 1.4 mg/dL (0.6-1.3); MAGNESIUM - SERUM 1.7 mg/dL (1.8-2.4); POTASSIUM - SERUM 3.5 mmol/L (3.5-5.1); PROTEIN - SERUM 7.1 g/dL (6.4-8.2)
[2018-08-07 09:56] VITALS: BP 140/84
[2018-08-07 16:40] VITALS: BP 124/66
[2018-08-07 20:00] VITALS: BP 137/74
[2018-08-08 04:55] VITALS: BP 135/50
[2018-08-08 06:39] LABS: BASOPHILS 0.1 % (0-2); EOSINOPHILS 1.8 % (0-7); HEMATOCRIT 24.7 % (42.0-54.0); IMMATURE GRANULOCYTES 1.1 % (0-5); LYMPHOCYTES 36.5 % (15-50); MCH 27.2 pg (26.0-34.0); MCHC 32.4 g/dL (31.0-37.0); MEAN PLATELET VOLUME 10.5 fL (7.4-10.4); MONOCYTES 5.9 % (2-11); NEUTROPHILS 54.6 % (40-80); RBC 2.94 10x6/uL (4.20-6.10); RDW 15.1 % (11.5-14.5); WBC 17.8 10x3/uL (4.8-10.8)
[2018-08-08 06:46] LABS: ALBUMIN 2.6 g/dL (3.4-5.0); ANION GAP 16.8 mmol/L (8-16); BILIRUBIN - TOTAL 0.54 mg/dL (0.2-1.3); CALCIUM 8.1 mg/dL (8.5-10.1); CARBON DIOXIDE 17.8 mmol/L (21.0-32.0); CREATININE - SERUM 1.2 mg/dL (0.6-1.3); MAGNESIUM - SERUM 1.7 mg/dL (1.8-2.4); PHOSPHOROUS 3.1 mg/dL (2.5-4.9); POTASSIUM - SERUM 3.6 mmol/L (3.5-5.1); PROTEIN - SERUM 6.5 g/dL (6.4-8.2)
[2018-08-08 06:49] LABS: PLATELET COUNT 182 10x3/uL (130-400)
[2018-08-08 16:25] VITALS: BP 136/70
[2018-08-08 20:40] VITALS: BP 134/74
[2018-08-08 23:50] VITALS: BP 128/74
[2018-08-09 05:23] LABS: BASOPHILS 0.1 % (0-2); EOSINOPHILS 2.3 % (0-7); HEMATOCRIT 27.4 % (42.0-54.0); HEMOGLOBIN 9.1 g/dL (13.5-17.5); IMMATURE GRANULOCYTES 1.4 % (0-5); LYMPHOCYTES 41.1 % (15-50); MCH 27.7 pg (26.0-34.0); MCHC 33.2 g/dL (31.0-37.0); MCV 83.3 fL (80.0-100.0); MEAN PLATELET VOLUME 10.2 fL (7.4-10.4); MONOCYTES 6.4 % (2-11); NEUTROPHILS 48.7 % (40-80); PLATELET COUNT 211 10x3/uL (130-400); RBC 3.29 10x6/uL (4.20-6.10); RDW 15.1 % (11.5-14.5); WBC 17.7 10x3/uL (4.8-10.8)
[2018-08-09 05:51] VITALS: BP 118/79
[2018-08-09 05:52] LABS: ALBUMIN 2.6 g/dL (3.4-5.0); ANION GAP 18.9 mmol/L (8-16); BILIRUBIN - TOTAL 0.5 mg/dL (0.2-1.3); CALCIUM 8.9 mg/dL (8.5-10.1); CARBON DIOXIDE 18.7 mmol/L (21.0-32.0); CREATININE - SERUM 1.3 mg/dL (0.6-1.3); POTASSIUM - SERUM 3.6 mmol/L (3.5-5.1); PROTEIN - SERUM 7.6 g/dL (6.4-8.2)
[2018-08-09 08:18] VITALS: BP 132/86
[2018-08-09] MEDS ORDERED: Nystatin Oral Susp [ PO (10:49)
[2018-08-09 13:10] VITALS: BP 130/84
[2018-08-09 16:40] VITALS: BP 123/76
[2018-08-09 20:55] VITALS: BP 131/81
[2018-08-09 22:06] VITALS: Ht 177.8 cm; Wt 60.6 kg
[2018-08-10 04:40] VITALS: BP 133/88
[2018-08-10 11:01] VITALS: BP 127/76
[2018-08-10 11:11] LABS: BASOPHILS 0.1 % (0-2); EOSINOPHILS 2.2 % (0-7); HEMATOCRIT 27.3 % (42.0-54.0); HEMOGLOBIN 9.1 g/dL (13.5-17.5); IMMATURE GRANULOCYTES 1.3 % (0-5); LYMPHOCYTES 40.1 % (15-50); MCH 27.8 pg (26.0-34.0); MCHC 33.3 g/dL (31.0-37.0); MCV 83.5 fL (80.0-100.0); MEAN PLATELET VOLUME 9.9 fL (7.4-10.4); NEUTROPHILS 50.3 % (40-80); PLATELET COUNT 245 10x3/uL (130-400); RBC 3.27 10x6/uL (4.20-6.10); RDW 15.3 % (11.5-14.5); WBC 18.6 10x3/uL (4.8-10.8)
[2018-08-10 11:19] LABS: ANION GAP 18.5 mmol/L (8-16); CARBON DIOXIDE 19.1 mmol/L (21.0-32.0); CREATININE - SERUM 1.4 mg/dL (0.6-1.3); POTASSIUM - SERUM 3.6 mmol/L (3.5-5.1)
[2018-08-10 15:11] VITALS: BP 137/88
[2018-08-10 21:30] VITALS: BP 140/91
[2018-08-11] VITALS (10 sets, daily range): BP systolic 126–149; BP diastolic 82–93
[2018-08-11 05:46] LABS: BASOPHILS 0.1 % (0-2); EOSINOPHILS 2.2 % (0-7); HEMATOCRIT 27.3 % (42.0-54.0); HEMOGLOBIN 8.9 g/dL (13.5-17.5); IMMATURE GRANULOCYTES 1.5 % (0-5); LYMPHOCYTES 40.9 % (15-50); MCH 27.6 pg (26.0-34.0); MCHC 32.6 g/dL (31.0-37.0); MCV 84.8 fL (80.0-100.0); MEAN PLATELET VOLUME 10.6 fL (7.4-10.4); MONOCYTES 6.3 % (2-11); PLATELET COUNT 289 10x3/uL (130-400); RBC 3.22 10x6/uL (4.20-6.10); RDW 15.3 % (11.5-14.5); WBC 20.7 10x3/uL (4.8-10.8)
[2018-08-11 05:50] LABS: ANION GAP 19.6 mmol/L (8-16); CALCIUM 8.9 mg/dL (8.5-10.1); CARBON DIOXIDE 18.5 mmol/L (21.0-32.0); CREATININE - SERUM 1.3 mg/dL (0.6-1.3); POTASSIUM - SERUM 4.1 mmol/L (3.5-5.1)
[2018-08-12 05:15] VITALS: BP 144/90
[2018-08-12 06:11] LABS: BASOPHILS 0.1 % (0-2); EOSINOPHILS 2.2 % (0-7); HEMATOCRIT 29.4 % (42.0-54.0); HEMOGLOBIN 9.9 g/dL (13.5-17.5); IMMATURE GRANULOCYTES 1.2 % (0-5); LYMPHOCYTES 41.2 % (15-50); MCH 28.2 pg (26.0-34.0); MCHC 33.7 g/dL (31.0-37.0); MCV 83.8 fL (80.0-100.0); MONOCYTES 5.9 % (2-11); NEUTROPHILS 49.4 % (40-80); PLATELET COUNT 311 10x3/uL (130-400); RBC 3.51 10x6/uL (4.20-6.10); RDW 15.3 % (11.5-14.5); WBC 17.1 10x3/uL (4.8-10.8)
[2018-08-12 06:34] LABS: ANION GAP 18.8 mmol/L (8-16); CALCIUM 8.9 mg/dL (8.5-10.1); CARBON DIOXIDE 18.1 mmol/L (21.0-32.0); CREATININE - SERUM 1.3 mg/dL (0.6-1.3); MAGNESIUM - SERUM 1.9 mg/dL (1.8-2.4); PHOSPHOROUS 3.9 mg/dL (2.5-4.9); POTASSIUM - SERUM 3.9 mmol/L (3.5-5.1)
[2018-08-12 08:49] VITALS: BP 155/98
[2018-08-12 16:19] VITALS: BP 136/87
[2018-08-12 20:00] VITALS: BP 130/67
[2018-08-13 04:00] VITALS: BP 125/77
[2018-08-13 07:26] LABS: BASOPHILS 0.1 % (0-2); EOSINOPHILS 1.3 % (0-7); HEMATOCRIT 28.3 % (42.0-54.0); HEMOGLOBIN 9.3 g/dL (13.5-17.5); IMMATURE GRANULOCYTES 0.9 % (0-5); LYMPHOCYTES 40.7 % (15-50); MCH 27.6 pg (26.0-34.0); MCHC 32.9 g/dL (31.0-37.0); MEAN PLATELET VOLUME 10.2 fL (7.4-10.4); MONOCYTES 5.1 % (2-11); NEUTROPHILS 51.9 % (40-80); PLATELET COUNT 332 10x3/uL (130-400); RBC 3.37 10x6/uL (4.20-6.10); RDW 15.2 % (11.5-14.5)
[2018-08-13 07:44] LABS: ANION GAP 16.2 mmol/L (8-16); CALCIUM 8.9 mg/dL (8.5-10.1); CARBON DIOXIDE 19.8 mmol/L (21.0-32.0); CREATININE - SERUM 1.6 mg/dL (0.6-1.3); PHOSPHOROUS 3.9 mg/dL (2.5-4.9)
[2018-08-13 08:26] VITALS: BP 122/77
[2018-08-13 12:42] VITALS: BP 119/78
[2018-08-13 16:35] VITALS: BP 117/78
[2018-08-13 22:27] VITALS: BP 120/75
[2018-08-14 05:08] VITALS: BP 149/86
[2018-08-14 06:37] LABS: BASOPHILS 0.1 % (0-2); EOSINOPHILS 3.4 % (0-7); HEMATOCRIT 26.4 % (42.0-54.0); HEMOGLOBIN 8.7 g/dL (13.5-17.5); IMMATURE GRANULOCYTES 0.8 % (0-5); LYMPHOCYTES 38.1 % (15-50); MCH 27.4 pg (26.0-34.0); MCV 83.3 fL (80.0-100.0); MONOCYTES 4.8 % (2-11); NEUTROPHILS 52.8 % (40-80); PLATELET COUNT 318 10x3/uL (130-400); RBC 3.17 10x6/uL (4.20-6.10); WBC 18.3 10x3/uL (4.8-10.8)
[2018-08-14 07:12] LABS: ANION GAP 17.1 mmol/L (8-16); CALCIUM 8.8 mg/dL (8.5-10.1); CARBON DIOXIDE 18.8 mmol/L (21.0-32.0); CREATININE - SERUM 1.2 mg/dL (0.6-1.3); MAGNESIUM - SERUM 1.9 mg/dL (1.8-2.4); POTASSIUM - SERUM 3.9 mmol/L (3.5-5.1)
[2018-08-14 07:13] LABS: PHOSPHOROUS 2.9 mg/dL (2.5-4.9)
[2018-08-14 08:43] VITALS: BP 126/78
[2018-08-14 12:40] VITALS: BP 128/86
[2018-08-14] MEDS ORDERED: Nystatin Oral Susp [ PO (16:41)
[2018-08-14 16:46] VITALS: BP 126/77
[2018-08-14 20:00] VITALS: BP 123/76
[2018-08-15 04:30] VITALS: BP 115/76
[2018-08-15 05:59] LABS: BASOPHILS 0.1 % (0-2); EOSINOPHILS 3.3 % (0-7); HEMATOCRIT 25.9 % (42.0-54.0); HEMOGLOBIN 8.5 g/dL (13.5-17.5); IMMATURE GRANULOCYTES 0.7 % (0-5); MCH 27.4 pg (26.0-34.0); MCHC 32.8 g/dL (31.0-37.0); MCV 83.5 fL (80.0-100.0); MEAN PLATELET VOLUME 9.7 fL (7.4-10.4); MONOCYTES 4.1 % (2-11); NEUTROPHILS 54.8 % (40-80); PLATELET COUNT 300 10x3/uL (130-400); RDW 15.1 % (11.5-14.5); WBC 16.9 10x3/uL (4.8-10.8)
[2018-08-15 06:17] LABS: ANION GAP 14.9 mmol/L (8-16); CALCIUM 8.5 mg/dL (8.5-10.1); CARBON DIOXIDE 21.2 mmol/L (21.0-32.0); CREATININE - SERUM 1.2 mg/dL (0.6-1.3); POTASSIUM - SERUM 4.1 mmol/L (3.5-5.1)
[2018-08-15 09:10] VITALS: BP 142/82
== END 2018-08-15 09:52 | DRG 682 ==
LOC: D.ER 01:58 → D.MS 03:19
PROVIDERS: Emergency Medicine; Family Medicine; Internal Medicine Nephrology; Surgery
PROC: 0DH63UZ Insertion of Feeding Device into Stomach, Percutaneous Approach (ICD-10-PCS; 2018-08-11)
PROC: 0DB78ZX Excision of Stomach, Pylorus, Via Natural or Artificial Opening Endoscopic, Diagnostic (ICD-10-PCS; principal; 2018-08-11 12:00)
DX: N17.9 Acute kidney failure, unspecified (principal); G92 Toxic encephalopathy; E43 Unspecified severe protein-calorie malnutrition; E87.0 Hyperosmolality and hypernatremia; B37.0 Candidal stomatitis; E86.0 Dehydration; R00.0 Tachycardia, unspecified; K59.00 Constipation, unspecified; I10 Essential (primary) hypertension; R19.7 Diarrhea, unspecified; D64.9 Anemia, unspecified; D72.829 Elevated white blood cell count, unspecified; Z85.46 Personal history of malignant neoplasm of prostate; K57.90 Diverticulosis of intestine, part unspecified, without perforation or abscess without bleeding

== ENCOUNTER → 2018-09-25 16:02 | Outpatient (CLI) | payer MEDICARE ==
[2018-08-09 22:06] VITALS: BMI 25.3
[~2018-09-25 16:02] MED LIST changes: +ACETAMINOPHEN325 MG PO; +Nystatin Oral Susp [ PO; +SENNA PLUS TA1 UDTAB PO
[2018-09-25 16:34] LABS: APPEARANCE CLEAR (CLEAR); BILIRUBIN NEGATIVE (NEGATIVE); COLOR STRAW (YELLOW); GLUCOSE NEGATIVE (NEGATIVE); KETONE NEGATIVE (NEGATIVE); NITRITE NEGATIVE (NEGATIVE); PH 6.5 (5.0-6.0); PROTEIN NEGATIVE (NEGATIVE); SPECIFIC GRAVITY 1.005 (1.005-1.020); UROBILINOGEN NORMAL (NORMAL)
== END | disposition home or self-care (01) ==
LOC: D.LABREF 16:02
PROVIDERS: Family Medicine
DX: R41.0 Disorientation, unspecified (principal); R82.90 Unspecified abnormal findings in urine